=== PATIENT | female | born 1970 | race Caucasian/White ===

== ENCOUNTER 2016-04-14 11:23 | Emergency (ER) | payer OTHER ==
[~2016-04-14 11:23] MED LIST: ASCO500C5 PO; BACL10TA PO; BACL20TA PO; CALC-354 PO; CLON0.5T3 PO; FSMD/70 PO; GABA1CAP5 PO; HYDR-5688 PO; MISCCAP80 PO; MULT-513 PO; NATA1INJ IV; OXYB10TA13 PO; PRED20TA PO; SERT-234 PO
[2016-04-14 11:25] VITALS: TEMP 36.6; Ht 175.3 cm
[2016-04-14] MEDS ORDERED: SODIUM CHLORIDE 0.9% 1000ML 1,000 ML IV STA (12:20)
[2016-04-14] MEDS ORDERED: CLONAZEPAM 0.5 MG TAB PO STA (12:20)
[2016-04-14] MEDS ORDERED: CODEINE SULFATE 15 MG TAB PO STA ×2 (12:20→12:30)
[2016-04-14] MEDS ORDERED: CODEINE SULFATE 30 MG TAB PO STA (12:37)
[2016-04-14 12:44] LABS: BASO % 0.1 %; BASO ABS # 0.01 K/uL (0-0.2); COMPLETE YES; HEMATOCRIT 43.2 % (37-47); IG% 0.4 %; LYMPH % 10.1 %; MEAN CELL VOLUME 91.3 fL (80-100); MEAN CORPUSCULAR HEMOGLOBIN 30.7 pg (25-34); MEAN CORPUSCULAR HGB CONC 33.6 g/dl (32-36); MEAN PLATELET VOLUME 10.3 fL (7.4-10.4); MONO % 7.2 %; NEUT % 82.2 %; PLATELET COUNT 231 K/uL (130-400); RED BLOOD COUNT 4.73 M/uL (4.2-5.4)
[2016-04-14 13:01] LABS: ALT/SGPT 23 U/L (12-78); BLOOD UREA NITROGEN 18 mg/dl (7-18); BUN/CREATININE RATIO 19.8 (10-20); CALCIUM 9.5 mg/dl (8.5-10.1); CARBON DIOXIDE 27 mmol/L (21-32); CHLORIDE 105 mmol/L (98-107); CREATININE 0.92 mg/dl (0.60-1.20); GLUCOSE 101 mg/dl (70-99); POTASSIUM 3.8 mmol/L (3.5-5.1); SODIUM 141 mmol/L (136-145)
[2016-04-14 13:03] LABS: ALB/GLOB RATIO 0.9 (0.9-2); ALKALINE PHOSPHATASE 50 U/L (45-117); AST/SGOT 18 U/L (15-37)
--- NOTE | 2016-04-14 15:12 | EMERGENCY ROOM VISIT NOTE ---
ED Visit Note First contact with patient: 11:49 This Patient was discussed with the physician [employer], Kervin Elliott PA-C. The pertinent historical and physical exam findings were confirmed. I agree with the studies ordered and with the interpretations of these studies. I agree with the disposition and care plan.
[2016-04-14] MEDS ORDERED: CDN15 PO (16:20)
--- NOTE | 2016-04-14 16:21 | EMERGENCY ROOM VISIT NOTE ---
History First contact with patient: 11:49 Chief Complaint: PAIN (GENERALIZED) Stated Complaint: TRIGEMINAL NEURALGIA PAIN History of Present Illness The patient is a delightful 45 year old female who presents to the Emergency Room via private vehicle accompanied by with complaints of "trigeminal neuralgia pain". The patient states that she has had trigeminal neuralgia for the past few years. She notes that she saw Dr. Cazares/Keisha Marie yesterday and [facility]u-Medrol and IV fluids. Klonopin was also added to the baclofen, gabapentin and hydrocodone for pain. She states that the pain in the right side of the face will come in waves and when it hits the pain is a 15/10. She states that when she eats it triggers this therefore for about the past 9 days she has been unable to eat or drink because of that. She denies any fevers, chills, chest pain or shortness of breath. Review of Systems A complete 10-point Review of Systems was discussed with the patient, with pertinent positives and negatives listed in the History of Present Illness. All remaining Review of Systems questions can be considered negative unless otherwise specified. Past Medical/Surgical History Medical Problems: (1) MS (multiple sclerosis) (2) Trigeminal neuralgia Family History Cancer Social History Smoking Status: Never Smoker Social History: She is unemployed, feels safe at home and denies tobacco and alcohol products. Current/Historical Medications Scheduled Alendronate/Cholecalciferol (Fosamax+D 70MG/2800 Iu), 1 TABLET PO WK Ascorbic Acid (Vitamin C), 500 MG PO DAILY Baclofen (Lioresal), 30 MG PO QAM Baclofen (Lioresal), 20 MG PO BID Calcium Carbonate-Cholecalcife (Caltrate 600+D), 1 TAB PO BID Clonazepam (Klonopin), 0.25 MG PO BID Gabapentin (Neurontin), 400 MG PO BID Gabapentin (Neurontin), 800 MG PO HS Multivitamins/Minerals (Mvi With Minerals), 1 TAB PO DAILY Natalizumab (Tysabri), 300 MG IV Q4WK Oxybutynin Chloride Er (Ditropan Xl), 20 MG PO DAILY Prednisone (Prednisone), 0 PO DAILY Probiotic Product (Probiotic), 1 CAP PO DAILY Sertraline (Zoloft), 100 MG PO DAILY Scheduled PRN Acetaminophen/Codeine (Tylenol W/Codeine #3), 1 TAB PO Q4H PRN for Pain Hydrocodone/Acetaminophen 5MG/325MG ([place] 5MG/325MG), 1 TABLET PO Q4 PRN for Pain Oxycodone/Acetaminophen 5MG/325MG (Percocet 5MG/325MG), 1-2 TABLETS PO Q4H PRN for Pain Allergies Coded Allergies: Amantadine (Verified Allergy, Intermediate, SWELLING, 04/14/16) Azathioprine (Verified Allergy, Intermediate, INCREASED LFT'S/ABDOMINAL PAIN, 04/14/16) Physical Exam Vital Signs Date Time Temp Pulse Resp B/P Pulse Ox O2 Delivery O2 Flow Rate FiO2 04/14/16 17:15 71 18 88/56 96 04/14/16 15:20 77 16 94/58 96 Room Air 04/14/16 13:28 79 18 99/55 100 Room Air 04/14/16 11:25 36.6 86 20 101/61 98 Room Air Physical Exam VITAL SIGNS - Vital signs and nursing notes were reviewed. Patient is afebrile , normotensive, non-tachycardic and is saturating well on room air 98%. GENERAL -45-year-old female appearing her stated age who is in no acute distress. Communicates well with provider and answers questions appropriately. SKIN - Without rashes. There is no erythema or edema to the right side of the face. No evidence of cellulitis. No evidence of temporal arteritis. HEAD - NC/AT. EYES - Sclera anicteric. Palpebral conjunctiva pink and moist with no injection noted. EARS - No deformities of external structures noted on gross examination bilaterally. NOSE - Midline and without cyanosis. No epistaxis or purulent drainage noted. MOUTH/OROPHARYNX - Without perioral cyanosis. Lips appear dry. LUNGS - Chest wall symmetric without accessory muscle use, intercostals retractions, or central cyanosis. Normal vesicular breath sounds CTA B/L. No wheezes, rales, or rhonchi appreciated. CARDIAC - RRR with S1/S2. No murmur, rubs, or gallops appreciated. Medical Decision & Procedures Laboratory Results 04/14/16 12:17 Red Blood Count 4.73, Mean Corpuscular Volume 91.3, Mean Corpuscular Hemoglobin 30.7, Mean Corpuscular Hemoglobin Concent 33.6, Mean Platelet Volume 10.3, Neutrophils (%) (Auto) 82.2, Lymphocytes (%) (Auto) 10.1, Monocytes (%) (Auto) 7.2, Eosinophils (%) (Auto) 0.0, Basophils (%) (Auto) 0.1, Neutrophils # (Auto) 13.92, Lymphocytes # (Auto) 1.70, Monocytes # (Auto) 1.21, Eosinophils # (Auto) 0.00, Basophils # (Auto) 0.01 04/14/16 12:17 Test 04/14/16 12:17 White Blood Count 16.90 K/uL (4.8-10.8) Red Blood Count 4.73 M/uL (4.2-5.4) Hemoglobin 14.5 g/dL (12.0-16.0) Hematocrit 43.2 % (37-47) Mean Corpuscular Volume 91.3 fL (80-100) Mean Corpuscular Hemoglobin 30.7 pg (25-34) Mean Corpuscular Hemoglobin Concent 33.6 g/dl (32-36) Platelet Count 231 K/uL (130-400) Mean Platelet Volume 10.3 fL (7.4-10.4) Neutrophils (%) (Auto) 82.2 % Lymphocytes (%) (Auto) 10.1 % Monocytes (%) (Auto) 7.2 % Eosinophils (%) (Auto) 0.0 % Basophils (%) (Auto) 0.1 % Neutrophils # (Auto) 13.92 K/uL (1.4-6.5) Lymphocytes # (Auto) 1.70 K/uL (1.2-3.4) Monocytes # (Auto) 1.21 K/uL (0.11-0.59) Eosinophils # (Auto) 0.00 K/uL (0-0.5) Basophils # (Auto) 0.01 K/uL (0-0.2) RDW Standard Deviation 47.1 fL (36.4-46.3) RDW Coefficient of Variation 14.1 % (11.5-14.5) Immature Granulocyte % (Auto) 0.4 % Immature Granulocyte # (Auto) 0.06 K/uL (0.00-0.02) Erythrocyte Sedimentation Rate 2 mm/hr (0-21) Anion Gap 9.0 mmol/L (3-11) Estimated GFR () 86.5 Estimated GFR (Non- 74.7 BUN/Creatinine Ratio 19.8 (10-20) Calcium Level 9.5 mg/dl (8.5-10.1) Total Bilirubin 0.7 mg/dl (0.2-1) Aspartate Amino Transf (AST/SGOT) 18 U/L (15-37) Alanine Aminotransferase (ALT/SGPT) 23 U/L (12-78) Alkaline Phosphatase 50 U/L (45-117) C-Reactive Protein < 0.29 mg/dl (0-0.29) Total Protein 8.1 gm/dl (6.4-8.2) Albumin 3.8 gm/dl (3.4-5.0) Globulin 4.3 gm/dl (2.5-4.0) Albumin/Globulin Ratio 0.9 (0.9-2) Medications Administered Medications (Trade) Dose Ordered Sig/Julieta Route Start Time Stop Time Status Last Admin Dose Admin Clonazepam 0.25 mg 0.25 mg NOW STAT PO 04/14/16 12:20 04/14/16 12:21 DC 04/14/16 12:44 0.25 MG Sodium Chloride (Nss 1000ml) 1,000 ml @ 999 mls/hr Q1H1M STAT IV 04/14/16 12:20 04/14/16 13:20 DC 04/14/16 12:47 999 MLS/HR Codeine Sulfate (Codeine Tab) 15 mg ONE STAT PO 04/14/16 12:37 04/14/16 12:38 DC 04/14/16 13:02 15 MG Medical Decision Patient was seen and evaluated as above. After obtaining a thorough history and physical examination IV access was obtained and a CBC, CMP secondary to subjective and objective examination findings. I then elected to speak with her neurologist. At 12:15 PM I spoke with Keisha Marie PA-C. She instructed me to give the patient a liter of IV fluid, 10 mg of codeine, Klonopin 0.25 mg and to have the patient call her office to schedule follow-up/ to see if this medication regimen will work. I do believe this is reasonable. She was given 0.25 mg of Klonopin and 50 mg of codeine as we did not have 10 mg tablets. She was reassessed and noted to have 2 episodes of trigeminal neuralgia pain. She was then observed after the pain medication was administered and did not have any other episodes. She was offered inpatient admission versus a trial at home with pain medication. She decided she would like to go home. I do believe this is reasonable. After she was hydrated with a liter of normal saline CBC reveals leukocytosis of 16.9, random glucose of 101 , and globulin of 4.3. I believe the leukocytosis is likely secondary to the Solu-Medrol she received yesterday. She was afebrile and had no signs of infection. Case was discussed with my attending and it was decided to add an ESR and CRP to further evaluate for potential temporal arteritis. These were within normal limits. Patient was educated upon findings and instructed to have these repeated with her family doctor. As stated above, the patient did elect to go home and she was sent a prescription of codeine. I was called by the pharmacy and [place] who noted that they do not carry this medication. I then elected to provide the patient with Tylenol No. 3 which has 30 mg of codeine. She was told she may split these in half. This was not sure pharmacy. She was told to continue the Klonopin as prescribed. It is important to note that she had not started the Klonopin yet as she was just prescribed this. I did call Dr. Valdez's office again and spoke with the nurse Ms. Roslyn Olmedo, and informed her upon the patient's emergency department visit. She is to relay this information to Dr. Mcdermott soon as possible. In regard to the patient, She was instructed to return with any new/concerning symptoms or worsening of her pain. I do believe outpatient management is reasonable at this time. She was educated upon today's findings, educated upon management, had questions answered prior to discharge and was discharged home in good condition. In the evaluation and treatment of this patient the following differential diagnoses were entertained: Trigeminal neuralgia, temporal arteritis, migraine, among others. Impression Primary Impression: Trigeminal neuralgia of right side of face Departure Information Dispostion Home / Self-Care Condition GOOD Prescriptions Acetaminophen/Codeine (Tylenol W/Codeine #3) 300 Mg/30 Mg Tab 1 TAB PO Q4H Y for Pain, #18 TAB For Initial Treatment Prov: Kervin Elliott, CRISTINA 04/14/16 Referrals Adolfo Garcia M.D. (PCP) Keisha Osborne M.D. Patient Instructions My [facility] Additional Instructions You were seen in the emergency department for right-sided facial pain, trigeminal neuralgia. Your case was discussed with Dr. Rhodes's physician faculty i on call medical assistant. Lab work revealed a slightly elevated white count at 16.9 which I believe is likely secondary to the IV steroids you received yesterday. It was recommended we start you on codeine, and encourage you to continue the Klonopin as it is prescribed. It is illegal to operate machinery or drive while taking codeine. This item can make you constipated, please take a stool softener with this. You were to call the office in the next few days to update them on how the medication is working. Please return to the emergency department with any new/concerning symptoms.
[2016-04-14] MEDS ORDERED: ACET-749 PO (16:37)
[2016-04-14 17:15] VITALS: BP 88/56; PULSE 71; O2SAT 96
[2016-04-14] MEDS ORDERED: OXYC-57 PO (20:33)
[2016-04-24] MEDS ORDERED: CPR500 PO (12:09)
[2016-04-24] MEDS ORDERED: CYM60 PO (13:23)
[2016-05-17] MEDS ORDERED: AMOX500C3 PO (07:30)
== END 2016-04-14 17:15 | disposition home or self-care (01) ==
LOC: C.EDB 11:24
DX: G50.0 Trigeminal neuralgia (principal); G35 Multiple sclerosis; Z80.9 Family history of malignant neoplasm, unspecified

== ENCOUNTER 2016-04-14 19:40 | Emergency (ER) | payer OTHER ==
[~2016-04-14] VITALS: Ht 175.3 cm; Wt 56.0 kg
[~2016-04-14 19:40] MED LIST changes: +ACET-749 PO; +CDN15 PO
[2016-04-14 19:47] VITALS: TEMP 36.8; Ht 175.3 cm; Wt 56.0 kg
[2016-04-14] MEDS ORDERED: HYDROmorphone INJ 1 MG/ML SYR IV STA (20:31)
[2016-04-14] MEDS ORDERED: OXYC-57 PO (20:33)
--- NOTE | 2016-04-14 20:39 | EMERGENCY ROOM VISIT NOTE ---
ED Visit Note First contact with patient: 19:57 45-year-old with history of MS and trigeminal neuralgia reportedly diagnosed her her neurologist presents to the emergency room for worsening bursts of right -sided facial pain over the last 10 days unrelieved with the codeine prescribed earlier today and emergency room. She and are requesting more aggressive pain management. Dilaudid 1mg IM, Percocet home pack and prescription for Percocet No. 20 written. Case management requested to facilitate prompt follow-up with outpatient neurologist.
[2016-04-14] MEDS ORDERED: HYDROmorphone INJ 1 MG/ML SYR IM PRN (20:45)
[2016-04-14] MEDS ORDERED: PERCOCET HOME PACK PO ONE (20:45)
[2016-04-14 21:27] VITALS: BP 107/73; PULSE 87; O2SAT 97
[2016-04-24] MEDS ORDERED: CPR500 PO (12:09)
[2016-04-24] MEDS ORDERED: CYM60 PO (13:23)
[2016-05-17] MEDS ORDERED: AMOX500C3 PO (07:30)
== END 2016-04-14 21:28 | disposition home or self-care (01) ==
LOC: C.EDB 19:42 → C.EDC 21:28
DX: G50.0 Trigeminal neuralgia (principal); G35 Multiple sclerosis

== ENCOUNTER 2016-04-22 11:40 | Inpatient (IN) | payer OTHER ==
[~2016-04-22] VITALS: Ht 175.3 cm; Wt 59.6 kg
[~2016-04-22 11:40] MED LIST changes: -CDN15 PO; +OXYC-57 PO
[2016-04-22 11:43] VITALS: Ht 175.3 cm; Wt 59.6 kg
--- NOTE | 2016-04-22 12:20 | EMERGENCY ROOM VISIT NOTE ---
History Report prepared by Jennyfer: Misael Gross Under the Supervision of: Dr. Andrés Mahan M.D. First contact with patient: 12:13 Chief Complaint: OTHER COMPLAINT Stated Complaint: PAIN IN FACE- CAN'T EAT, BED SORES History of Present Illness The patient is a 45 year old female who presents to the Emergency Room with complaints of intermittent facial pain that started months ago. She has chronic trigeminal neuralgia, and was sent over here for an MRI by Keisha Jasmine. The patient does not have any pain today, however. She also has bed sores. The patient took 1 OxyContin this morning. There is concern for dehydration. Source of History: patient Onset: Months ago Position: other (face) Quality: other (pain) Timing: intermittent Note: Associated symptoms: Bed sores. Denies any current pain. Review of Systems See HPI for pertinent positives & negatives. A total of 10 systems reviewed and were otherwise negative. Past Medical & Surgical Medical Problems: (1) MS (multiple sclerosis) (2) Trigeminal neuralgia Surgical Problems: (1) History of tubal ligation Family History Cancer Lung disease Seizures Social History Smoking Status: Never Smoker Alcohol Use: none Marital Status: Housing Status: lives with family Occupation Status: unemployed Current/Historical Medications Scheduled Alendronate/Cholecalciferol (Fosamax+D 70MG/2800 Iu), 1 TABLET PO WK Ascorbic Acid (Vitamin C), 500 MG PO DAILY Baclofen (Lioresal), 30 MG PO DAILY Baclofen (Lioresal), 20 MG PO BID Calcium Carbonate-Cholecalcife (Caltrate 600+D), 1 TAB PO BID Clonazepam (Klonopin), 0.5 MG PO BID Gabapentin (Neurontin), 800 MG PO TID Multivitamins/Minerals (Mvi With Minerals), 1 TAB PO DAILY Natalizumab (Tysabri), 300 MG IV Q4WK Oxybutynin Chloride Er (Ditropan Xl), 10 MG PO BID Prednisone (Prednisone), 0 PO DAILY Probiotic Product (Probiotic), 1 CAP PO Q2D Sertraline (Zoloft), 100 MG PO DAILY Scheduled PRN Oxycodone/Acetaminophen 10MG/325MG (Oxycodone/Acetaminophen 10MG/325MG), 1 TAB PO Q4H PRN for Pain Allergies Coded Allergies: Amantadine (Verified Allergy, Intermediate, SWELLING, 04/22/16) Carbamazepine (Verified Allergy, Unknown, RASH, 04/22/16) rash Levetiracetam (Verified Allergy, Unknown, rash, 04/22/16) Azathioprine (Unverified Adverse Reaction, Intermediate, INCREASED LFT'S/ ABDOMINAL PAIN, 04/22/16) Physical Exam Vital Signs Date Time Temp Pulse Resp B/P Pulse Ox O2 Delivery O2 Flow Rate FiO2 04/22/16 17:00 66 20 91/58 96 Room Air 04/22/16 16:40 Room Air 04/22/16 15:15 71 16 89/53 04/22/16 13:16 64 04/22/16 11:43 36.5 83 16 101/70 99 Room Air Physical Exam GENERAL: Patient is a cachetic in appearance. HEAD: Normocephalic atraumatic EYES: Ocular movements intact pupils equal and react to light OROPHARYNX mucous membranes are moist no exudates present no erythema or edema present NECK: Supple no nuchal rigidity CHEST: Good equal expansion LUNGS: Clear and equal to auscultation CARDIAC: Normal S1 and S2 ABDOMEN: Soft nontender no guarding BACK: No CVA tenderness EXTREMITIES: No pain upon palpation normal muscle strength in all groups no clubbing cyanosis or edema NEURO: Patient is following commands is answering questions appropriately. Alert and oriented x3 Cranial Nerves 2-12 grossly intact Medical Decision & Procedures Laboratory Results Test 04/22/16 13:05 Immature Granulocyte % (Auto) 0.7 % White Blood Count 16.59 K/uL (4.8-10.8) Red Blood Count 4.92 M/uL (4.2-5.4) Hemoglobin 15.2 g/dL (12.0-16.0) Hematocrit 45.7 % (37-47) Mean Corpuscular Volume 92.9 fL (80-100) Mean Corpuscular Hemoglobin 30.9 pg (25-34) Mean Corpuscular Hemoglobin Concent 33.3 g/dl (32-36) Platelet Count 169 K/uL (130-400) Mean Platelet Volume 10.2 fL (7.4-10.4) Neutrophils (%) (Auto) 83.7 % Lymphocytes (%) (Auto) 9.5 % Monocytes (%) (Auto) 5.1 % Eosinophils (%) (Auto) 0.9 % Basophils (%) (Auto) 0.1 % Neutrophils # (Auto) 13.89 K/uL (1.4-6.5) Lymphocytes # (Auto) 1.57 K/uL (1.2-3.4) Monocytes # (Auto) 0.85 K/uL (0.11-0.59) Eosinophils # (Auto) 0.15 K/uL (0-0.5) Basophils # (Auto) 0.02 K/uL (0-0.2) Immature Granulocyte # (Auto) 0.11 K/uL (0.00-0.02) Prothrombin Time 11.5 SECONDS (9.0-12.0) Prothromb Time International Ratio 1.1 (0.9-1.1) Activated Partial Thromboplast Time 25.8 SECONDS (21.0-31.0) Partial Thromboplastin Ratio 1.0 Total Bilirubin 0.8 mg/dl (0.2-1) Direct Bilirubin 0.3 mg/dl (0-0.2) Aspartate Amino Transf (AST/SGOT) 31 U/L (15-37) Alanine Aminotransferase (ALT/SGPT) 53 U/L (12-78) Alkaline Phosphatase 56 U/L (45-117) C-Reactive Protein 0.68 mg/dl (0-0.29) Total Protein 8.0 gm/dl (6.4-8.2) Albumin 3.7 gm/dl (3.4-5.0) Prealbumin 28.4 mg/dl (20-40) Lipase 303 U/L (73-393) Procalcitonin < 0.05 ng/mL (0-0.5) Labs reviewed by ED physician. ED Course 1214: Past medical records reviewed. The patient was evaluated in room A10. A complete history and physical examination was performed. Medical Decision Differential diagnosis: Etiologies such as metabolic, infection, hypo/hyperglycemia, electrolyte abnormalities, cardiac sources, intracerebral event, toxicologic, neurologic, as well as others were entertained. This is a 45-year-old female who presents emergency department sent in by neurology. There is concerned that the patient has lost a significant amount of weight and that she has not eating due to her trigeminal neuralgia. Neurology asked for a specific MRI to be performed. This was done. The patient was signed out to Dr. Hogan at change shift. Impression Primary Impression: Trigeminal neuralgia Scribe Attestation The scribe's documentation has been prepared under my direction and personally reviewed by me in its entirety. I confirm that the note above accurately reflects all work, treatment, procedures, and medical decision making performed by me. Departure Information Dispostion Still a Patient Referrals Adolfo Garcia M.D. (PCP) Patient Instructions My [facility]
[2016-04-22 13:18] LABS: BASO % 0.1 %; BASO ABS # 0.02 K/uL (0-0.2); COMPLETE YES; EOS % 0.9 %; HEMATOCRIT 45.7 % (37-47); IG% 0.7 %; LYMPH % 9.5 %; LYMPH ABS # 1.57 K/uL (1.2-3.4); MEAN CELL VOLUME 92.9 fL (80-100); MEAN CORPUSCULAR HEMOGLOBIN 30.9 pg (25-34); MEAN CORPUSCULAR HGB CONC 33.3 g/dl (32-36); MEAN PLATELET VOLUME 10.2 fL (7.4-10.4); MONO % 5.1 %; NEUT % 83.7 %; PLATELET COUNT 169 K/uL (130-400); RED BLOOD COUNT 4.92 M/uL (4.2-5.4); WHITE BLOOD COUNT 16.59 K/uL (4.8-10.8)
[2016-04-22 13:35] LABS: ALT/SGPT 53 U/L (12-78); BLOOD UREA NITROGEN 17 mg/dl (7-18); BUN/CREATININE RATIO 27.2 (10-20); CALCIUM 9.5 mg/dl (8.5-10.1); CARBON DIOXIDE 30 mmol/L (21-32); CHLORIDE 104 mmol/L (98-107); CREATININE 0.61 mg/dl (0.60-1.20); GLUCOSE 104 mg/dl (70-99); POTASSIUM 4.3 mmol/L (3.5-5.1); SODIUM 143 mmol/L (136-145)
[2016-04-22 13:39] LABS: ALKALINE PHOSPHATASE 56 U/L (45-117); AST/SGOT 31 U/L (15-37)
--- NOTE | 2016-04-22 15:03 | EMERGENCY ROOM VISIT NOTE ---
ED Visit Note First contact with patient: 14:[address] Mahan at change of shift 3:00pm. Sent by Neurologist for MRI and admission for analgesic control and concerns over malnutrition. WBCs noted. [facility] @ 4:10 pending some labs and CXR. MRI c/w MS.
--- NOTE | 2016-04-22 15:25 | DIAGNOSTIC IMAGING REPORT ---
BRAIN COMBO FOR IAC CLINICAL HISTORY: Severe right facial pain. Multiple sclerosis. COMPARISON STUDY: No previous studies for comparison. TECHNIQUE: Utilizing a 1.5 Aubree magnet, multiplanar, multiecho imaging of the brain was performed pre and postcontrast administration. Injection of 5.8 cc of gadolinium IV was uneventful. Thin cut imaging through the internal auditory canals was also performed. FINDINGS: There are no areas of restricted diffusion. Multiple areas of T2 shine through are present. Moderate atrophy for age is noted. No intracranial masses or pathologic enhancement is present. Flow-voids for the major intracranial vessels are present. Extensive periventricular and subcortical white matter T2 hyperintense foci are noted. There is no enhancement to suggest active demyelination on this examination. Several signal is maintained. Orbits and sinuses are unremarkable. There is no mass or abnormal enhancement within the internal auditory canals. IMPRESSION: 1. No acute intracranial findings. 2. Extensive white matter T2 hyperintense foci, predominantly within a periventricular distribution consistent with the known history of multiple sclerosis. No evidence for active demyelination. 3. No intracranial masses or pathologic enhancement. 4. No abnormalities within the internal auditory canals. Electronically signed by: Harvey Keller M.D. 04/22/2016 3:23 PM Dictated Date/Time: 04/22/2016 3:14 PM
[2016-04-22 15:34] LABS: C-REACTIVE PROTEIN 0.68 mg/dl (0-0.29); PREALBUMIN 28.4 mg/dl (20-40)
[2016-04-22] MEDS ORDERED: SODIUM CHLORIDE 0.9% 1000ML 1,000 ML IV SCH (17:15)
[2016-04-22] MEDS ORDERED: ONDANSETRON INJ 2 MG/ML 2 ML VIAL IV PRN (17:15)
[2016-04-22] MEDS ORDERED: ACETAMINOPHEN 325 MG TAB PO PRN (17:15)
[2016-04-22] MEDS ORDERED: OXYC-88 PO (17:19)
[2016-04-22] MEDS ORDERED: BACL20TA PO (17:19)
[2016-04-22] MEDS ORDERED: MoRPHine SULFATE 4 MG/ML 1 ML CARP\\VIAL IV PRN (17:45)
--- NOTE | 2016-04-22 17:59 | History and Physical ---
History & Physical Date & Time of Service: Apr 22, 2016 at 17:38 Chief Complaint: Right Cheek Pain Primary Care Physician: Adolfo Garcia M.D. History of Present Illness 45 year old female who presents to the ER with intractable right cheek pain. Patient has history of MS and trigeminal neuralgia. She has been dealing with increased pain from trigeminal neuralgia for the past one month. She was initially treated with Toradol and Prednisone. She then saw neuro who gave her 1 gram IV solu-medrol, IVF, and Klonopin. She continued to have pain so her Percocet and Klonopin were increased. Neuro wanted patient to get an MRI to see if there was any possible intervention for neurosurgery to do; however, due to the increased pain, patient has been unable to go for the MRI. She reports a very poor appetite because chewing can sometimes trigger the pain. Patient reports the pain is located over her maxillary bone and will sometimes radiate into her upper jaw. She reports she gets a sensation of a feather brushing over her nose and then the pain hits. She denies chest pain and shortness of breath. No lightheadedness, dizziness, diaphoresis, or syncope. She denies abdominal pain, nausea, vomiting, or diarrhea. Patient's caths her 2-3 times a day and reports her urine output has been down. Patient had a brain MRI in the ED that does not show any acute findings. Past Medical/Surgical History Medical Problems: (1) MS (multiple sclerosis) Status: Chronic (2) Trigeminal neuralgia Status: Chronic Surgical Problems: (1) History of tubal ligation Status: Chronic Family History FH: brain cancer FATHER Social History Smoking Status: Never Smoker Drug Use: none Marital Status: Immunizations History of Influenza Vaccine: Yes Influenza Vaccine Date: Feb 11, 2016 History of Tetanus Vaccine?: Yes Tetanus Immunization Date: Sep 22, 2006 History of Pneumococcal: Yes Pneumococcal Date: Sep 22, 2006 Multi-Drug Resistant Organisms History of MDRO: No Allergies Coded Allergies: Amantadine (Verified Allergy, Intermediate, SWELLING, 04/22/16) Azathioprine (Unverified Adverse Reaction, Intermediate, INCREASED LFT'S/ ABDOMINAL PAIN, 04/22/16) Home Medications Scheduled Alendronate/Cholecalciferol (Fosamax+D 70MG/2800 Iu), 1 TABLET PO WK Ascorbic Acid (Vitamin C), 500 MG PO DAILY Baclofen (Lioresal), 30 MG PO DAILY Baclofen (Lioresal), 20 MG PO BID Calcium Carbonate-Cholecalcife (Caltrate 600+D), 1 TAB PO BID Clonazepam (Klonopin), 0.5 MG PO BID Gabapentin (Neurontin), 800 MG PO TID Multivitamins/Minerals (Mvi With Minerals), 1 TAB PO DAILY Natalizumab (Tysabri), 300 MG IV Q4WK Oxybutynin Chloride Er (Ditropan Xl), 10 MG PO BID Prednisone (Prednisone), 0 PO DAILY Probiotic Product (Probiotic), 1 CAP PO Q2D Sertraline (Zoloft), 100 MG PO DAILY Scheduled PRN Oxycodone/Acetaminophen 10MG/325MG (Oxycodone/Acetaminophen 10MG/325MG), 1 TAB PO Q4H PRN for Pain Review of Systems 10 point review of systems was completed with the pertinent positives and negatives noted per the HPI Physical Exam Vital Signs Date Time Temp Pulse Resp B/P Pulse Ox O2 Delivery O2 Flow Rate FiO2 04/22/16 16:40 Room Air 04/22/16 15:15 71 16 89/53 04/22/16 13:16 64 04/22/16 11:43 36.5 83 16 101/70 99 Room Air General Appearance: + pertinent finding (appears weak and tired) Head: normocephalic Eyes: normal inspection ENT: + pertinent finding (dry lips and mucous membranes) Neck: supple, no JVD Respiratory/Chest: lungs clear, normal breath sounds, no respiratory distress Cardiovascular: regular rate, rhythm, no edema, normal peripheral pulses Abdomen/GI: normal bowel sounds, non tender, soft Extremities/Musculoskelatal: normal inspection, no calf tenderness Neurologic/Psych: no motor/sensory deficits (has BLLE weakness from MS - no acute changes), alert, normal mood/affect, oriented x 3 Skin: normal color, warm/dry, + pertinent finding (please refer to wound care note regarding deep tissue injury over left buttocks and sacral area) Diagnostics Laboratory Results Results Past 24 Hours Test 04/22/16 13:05 Range/Units White Blood Count 16.59 4.8-10.8 K/uL Red Blood Count 4.92 4.2-5.4 M/uL Hemoglobin 15.2 12.0-16.0 g/dL Hematocrit 45.7 37-47 % Mean Corpuscular Volume 92.9 80-100 fL Mean Corpuscular Hemoglobin 30.9 25-34 pg Mean Corpuscular Hemoglobin Concent 33.3 32-36 g/dl Platelet Count 169 130-400 K/uL Mean Platelet Volume 10.2 7.4-10.4 fL Neutrophils (%) (Auto) 83.7 % Lymphocytes (%) (Auto) 9.5 % Monocytes (%) (Auto) 5.1 % Eosinophils (%) (Auto) 0.9 % Basophils (%) (Auto) 0.1 % Neutrophils # (Auto) 13.89 1.4-6.5 K/uL Lymphocytes # (Auto) 1.57 1.2-3.4 K/uL Monocytes # (Auto) 0.85 0.11-0.59 K/uL Eosinophils # (Auto) 0.15 0-0.5 K/uL Basophils # (Auto) 0.02 0-0.2 K/uL RDW Standard Deviation 49.4 36.4-46.3 fL RDW Coefficient of Variation 14.6 11.5-14.5 % Immature Granulocyte % (Auto) 0.7 % Immature Granulocyte # (Auto) 0.11 0.00-0.02 K/uL Sodium Level 143 136-145 mmol/L Potassium Level 4.3 3.5-5.1 mmol/L Chloride Level 104 98-107 mmol/L Carbon Dioxide Level 30 21-32 mmol/L Anion Gap 9.0 3-11 mmol/L Blood Urea Nitrogen 17 7-18 mg/dl Creatinine 0.61 0.60-1.20 mg/dl Estimated GFR () 126.0 Estimated GFR (Non- 108.7 BUN/Creatinine Ratio 27.2 10-20 Random Glucose 104 70-99 mg/dl Calcium Level 9.5 8.5-10.1 mg/dl Total Bilirubin 0.8 0.2-1 mg/dl Direct Bilirubin 0.3 0-0.2 mg/dl Aspartate Amino Transf (AST/SGOT) 31 15-37 U/L Alanine Aminotransferase (ALT/SGPT) 53 12-78 U/L Alkaline Phosphatase 56 45-117 U/L C-Reactive Protein 0.68 0-0.29 mg/dl Total Protein 8.0 6.4-8.2 gm/dl Albumin 3.7 3.4-5.0 gm/dl Prealbumin 28.4 20-40 mg/dl Lipase 303 73-393 U/L Procalcitonin < 0.05 0-0.5 ng/mL Diagnostic Radiology BRAIN MRI IMPRESSION: 1. No acute intracranial findings. 2. Extensive white matter T2 hyperintense foci, predominantly within a periventricular distribution consistent with the known history of multiple sclerosis. No evidence for active demyelination. 3. No intracranial masses or pathologic enhancement. 4. No abnormalities within the internal auditory canals. Impression Assessment and Plan INTRACTABLE PAIN DUE TO TRIGEMINAL NEURALGIA - admit to med/surg - case discussed with neurology - continue steroid taper and start to taper Klonopin, continue gabapentin - pain management consult - may need neurosurg evaluation; per Dr. Osborne - MRI images have been sent to neurosurgeon at [facility] LEUKOCYTOSIS - likely due to recent steroids - check urine DEHYDRATION - renal function OK - clinically dehydrated - dry mucous membranes and lips, weak - IVF MS - on Tysabri injections q4 weeks NEUROGENIC BLADDER - usually straight caths but will place Diaz whole hospitalized PRESSURE ULCER/DTI - present on admission - wound care consult DVT PROPHYLAXIS - SQ Lovenox DISPO - In my clinical judgment this beneficiary meets acute admission criteria, established by [facility], that includes being hospitalized through two midnights. agree with above h and p.45F with hx of MS and bed bound having right sided trigeminal neuralgia for about a month. Following with neurology. Various medicines were tried like steroids, Klonopin, tramadol and Neurontin but not helping. Not eating as chewing causing more pain. Neurology planned for MRI for any possible neurosurgery intervention but coldnot done as out patient. MRI done today in ER no acute finding.Afebrile Denies chest pain or sob. Admitting for hydration and pain control. p/e Ge not in distress cvs s1 and s2 heard no murmurs Oral mucosa dry Rs cta b/l no added sounds Abd benign Spot Cleaner non focal ext no edema a/p Trigeminal neuralgia to continue steroid taper to taper Klonopin on gabapentin pain management consult neurology consult Nutrition not eating as chewing causing more pain nutrition consult iv fluids hopefully pain gets better. Advanced Directives Existing Living Will: Yes Existing Power of [place] Representative: Yes VTE Prophylaxis VTE Risk Assessment Done? Y/N: Yes Risk Level: Moderate
--- NOTE | 2016-04-22 18:42 | DIAGNOSTIC IMAGING REPORT ---
CHEST 2 VIEWS ROUTINE CLINICAL HISTORY: leukocytosis dyspnea COMPARISON STUDY: No previous studies for comparison. FINDINGS: Poorly defined left lower lobe infiltrate. Lungs otherwise are clear. No evidence for cardiac enlargement. IMPRESSION: Left lower lobe infiltrate Electronically signed by: Fito Greer M.D. 04/22/2016 6:41 PM Dictated Date/Time: 04/22/2016 6:40 PM
[2016-04-22 19:25] LABS: MANUAL MICROSCOPIC REQUIRED? NO; REVIEW REQ? NO; URINE APPEARANCE TURBID (CLEAR); URINE BILIRUBIN NEG (NEG); URINE COLOR DK YELLOW; URINE EPITHELIAL CELL AUTO >30 /lpf (0-5); URINE NITRITE POS (NEG); URINE PH 8.5 (4.5-7.5); URINE SPECIFIC GRAVITY 1.021 (1.000-1.030); UROBILINOGEN POS (NEG); ZZUR CULT IF INDIC CLEAN CATCH YES
[2016-04-22 19:42] VITALS: O2SAT 97
[2016-04-22 20:58] VITALS: BP 100/63; PULSE 64; TEMP 36.8; O2SAT 98
[2016-04-22 21:08] LABS: INR 1.1 (0.9-1.1); PROTHROMBIN TIME (PATIENT) 11.5 SECONDS (9.0-12.0)
[2016-04-22 21:25] LABS: URINE APPEARANCE CLOUDY (CLEAR); URINE BILIRUBIN NEG (NEG); URINE COLOR DK YELLOW; URINE EPITHELIAL CELL AUTO >30 /lpf (0-5); URINE NITRITE NEG (NEG); URINE SPECIFIC GRAVITY 1.022 (1.000-1.030); UROBILINOGEN POS (NEG)
[2016-04-22 21:26] LABS: MANUAL MICROSCOPIC REQUIRED? NO; REVIEW REQ? YES
[2016-04-22] MEDS: D5W AND NSS 1,000 ML IV SCH (21:49)
[2016-04-22] MEDS: OXYBUTYNIN CHLORIDE 5 MG TABCR PO SCH (21:50)
[2016-04-22] MEDS: GABAPENTIN 400 MG CAP PO SCH (21:51)
[2016-04-22] MEDS: BACLOFEN TAB 20 MG TAB PO SCH (21:51)
[2016-04-22] MEDS: ENOXAPARIN 30 MG/0.3 ML SYR SQ SCH (22:38)
[2016-04-22 23:28] VITALS: BP 95/61; PULSE 73; TEMP 36.8; O2SAT 100
[2016-04-23] MEDS: D5W AND NSS 1,000 ML IV SCH ×2 (05:37→14:10)
--- NOTE | 2016-04-23 07:09 | NEUROLOGY CONSULTATION ---
DATE OF CONSULTATION: 04/22/2016 REASON FOR CONSULTATION: Continued followup with multiple sclerosis and trigeminal neuralgia. HISTORY OF PRESENT ILLNESS: Jagruti is a 45-year-old right-handed female, who has had multiple sclerosis since her early 20s. 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 On this background for several years intermittently and very infrequently she has had severe right V2 and V3 trigeminal pain. She was initially on Tegretol which she developed rash. She is on gabapentin for a multitude of reasons one of which was history of isolated seizure, two tremor, three neuropathic pain and spasticity. This has been gradually escalated in dose without any current significant effect. She is also on baclofen for spasticity, this dose has been adjusted and has not been effective. We recently increased the gabapentin and added clonazepam without significant effect, but with sedation. She has been taking a fairly high dose of Percocet 10 for at least the last 4 or 5 days. Fortunately, today she has not had any further pain, yesterday she had. She has lost an unknown amount of weight as she is fearful of eating and she has clinically appeared dehydrated. She has also developed a pressure sore on her buttocks. We had ordered an MRI of the brain with and without contrast with imaging to rule out a vascular loop which could be causing her trigeminal neuralgia in addition to her multiple sclerosis. The study today did not reveal any evidence of vascular loop. DAPHNEY Bonds had been in contact with Dr. Ferguson at [place] and indirectly in contact with Dr. Andrés Browne at [facility] regarding potentially her having surgery. The [facility] neurosurgeons felt the procedures done at_ their facility would not be helpful in multiple sclerosis and that done by Dr. Browne might be appropriate. So, therefore, the patient was admitted for hydration, nutrition and pain control. MEDICAL HISTORY: Notable for the above. PAST SURGICAL HISTORY: Breast enlargement, tubal ligation. SOCIAL HISTORY: Nonsmoker, nondrinker. My understanding is that the patient is adopted. ALLERGIES: AMANTADINE, AZATHIOPRINE, TEGRETOL AND KEPPRA. MEDICATIONS: At home she takes; Fosamax, vitamin C, baclofen dose 30 mg once a day and 20 mg b.i.d., calcium, clonazepam 0.5 b.i.d., gabapentin 800 t.i.d., multiple vitamins, Tysabri every 4 weeks, Ditropan 10 mg b.i.d. The patient received 1 dose of intravenous steroids and is currently on a steroid taper that has not been helpful for her facial pain. She is on a probiotic and Zoloft. She is taking oxycodone 10 mg as needed. LABORATORY DATA: Her white count was 16 consistent with steroid use. PT, PTT are pending. Chemistry profile; BUN and creatinine 17/0.61, sodium 143, potassium 4.3 random glucose 104. Transaminases normal, CRP 0.68, lipase 303. Urinalysis; trace ketones, positive nitrites, urobilinogen, trace leukocyte esterase, white cells 1-5, epithelial greater than 30, urine bacteria 4+. PHYSICAL EXAMINATION: VITAL SIGNS: 62, afebrile, 83, 16, 101/70, 99%. GENERAL: The patient is awake and alert. She avoids speaking because of precipitation of pain. She is clinically dehydrated. HEENT: Her tongue is dry, her lips are dry. Her eyes are mildly sunken and she appears thinner than baseline. HEART: There are no carotid bruits. No heart murmurs. ABDOMEN: Soft. EXTREMITIES: No calf swelling is noted. NEUROLOGIC: There is normal extraocular motility, facial sensation and symmetry, although she guards her face; uppers are about 4, lower right is about 2+. The TA is probably antigravity, left is 2-. There is mildly increased tone, diffusely brisk reflexes, cerebellar function where testable in the upper is mildly dystaxic. IMPRESSION: Severe trigeminal neuralgia refractory to baclofen and gabapentin. I believe she was previously taking Zanaflex and not tolerated it. She is allergic to Tegretol and Keppra. I have been concerned about using Lamictal given her rash to Tegretol, the potential cross reaction and she has not responded to clonazepam. I would recommend tapering and discontinuing the clonazepam. Continue Percocet on an as needed basis. Consult pain management, although I am not certain that they would have anything to add. Keisha Marie sent a note to Dr. Andrés Browne and Dr. Willingham regarding her case, they will contact her and Keisha will let Dr. Rodríguez know the status. I will recommend hydration and nutrition as well as wound care for her decubiti. Dr. Rodríguez will follow with you. SOPHY
[2016-04-23 07:12] VITALS: BP 91/49; PULSE 56; TEMP 36.6; O2SAT 99
[2016-04-23 07:16] LABS: HEMATOCRIT 40.3 % (37-47); MEAN CELL VOLUME 91.8 fL (80-100); MEAN CORPUSCULAR HEMOGLOBIN 30.8 pg (25-34); MEAN CORPUSCULAR HGB CONC 33.5 g/dl (32-36); PLATELET COUNT 159 K/uL (130-400); RED BLOOD COUNT 4.39 M/uL (4.2-5.4); WHITE BLOOD COUNT 11.14 K/uL (4.8-10.8)
[2016-04-23 08:00] LABS: BLOOD UREA NITROGEN 16 mg/dl (7-18); BUN/CREATININE RATIO 40.8 (10-20); CALCIUM 8.3 mg/dl (8.5-10.1); CARBON DIOXIDE 26 mmol/L (21-32); CHLORIDE 108 mmol/L (98-107); CREATININE 0.38 mg/dl (0.60-1.20); GLUCOSE 91 mg/dl (70-99); POTASSIUM 3.3 mmol/L (3.5-5.1); SODIUM 143 mmol/L (136-145)
[2016-04-23] MEDS ORDERED: SERTRALINE HCL 100 MG TAB PO SCH (08:00)
[2016-04-23] MEDS: BACLOFEN TAB 20 MG TAB PO SCH ×3 (08:22→20:32)
[2016-04-23] MEDS: ASCORBIC ACID 500 MG TAB PO SCH (08:23)
[2016-04-23] MEDS: OXYBUTYNIN CHLORIDE 5 MG TABCR PO SCH ×2 (08:23→20:32)
[2016-04-23] MEDS: CEROVITE ADV FORMULA TAB PO SCH (08:24)
[2016-04-23] MEDS: ENOXAPARIN 30 MG/0.3 ML SYR SQ SCH ×2 (08:24→20:31)
[2016-04-23] MEDS: CALCIUM 600MG + VIT D 400 IU TAB PO SCH ×2 (08:26→17:28)
[2016-04-23] MEDS: GABAPENTIN 400 MG CAP PO SCH ×3 (08:27→20:32)
[2016-04-23] MEDS: CLONAZEPAM 0.5 MG TAB PO SCH ×2 (08:32→20:32)
[2016-04-23] MEDS ORDERED: LACTOBACILLUS ACIDOPHILUS (FLORANEX) TAB PO SCH (09:00)
--- NOTE | 2016-04-23 12:58 | CONSULTATION REPORT ---
DATE OF CONSULTATION: 04/23/2016 INPATIENT NEW CONSULT CHIEF COMPLAINT: Right trigeminal neuralgia, cranial nerve V2. HISTORY OF PRESENT ILLNESS: I saw 45-year-old, Ms. Jagruti Melo today at the [facility]. She has a history of multiple sclerosis and right-sided V2 trigeminal neuralgia, increasing over the last month. She states that her pain is lancinating up to 5 times daily for about 1-2 seconds at a time, but reports that during these times, pain is so extreme that she cries and refuses to eat and drink as she feels that this exacerbates her pain. She was admitted for IV steroids, IV fluids and Klonopin. She reports she is unable to eat at all and there is an unopened breakfast tray on her table this morning. She states that the pain feels like a feather brushing over her nose and then the pain is excruciating over her cranial nerve, right V2. She denies any pain over cranial nerve V1 or V3. She states that sometimes, she will have pain radiating into her proximal mandible, but feels that it is starburst type pattern from over her maxilla. In regards to her multiple sclerosis, she currently utilizes Baclofen for her rigidity and spasticity, total daily mg dosage of 70 mg. She reports that she has fair efficacy of this. She denies any other concerns or constitutional complaints at this time with the exception of a coccyx region wound, which is being treated by wound Clinic. PAST MEDICAL HISTORY: Significant for multiple sclerosis and trigeminal neuralgia. PAST SURGICAL HISTORY: Significant for tubal ligation. SOCIAL HISTORY: She is , living with her significant other. Denies alcohol, tobacco or illicit substance use. MEDICATIONS AND ALLERGIES: Reviewed as per EMR. REVIEW OF SYSTEMS: A 10-point review of systems is negative aside from HPI. IMAGING STUDIES: Brain MRI dated 04/22/2016 shows no acute findings, extensive T2 foci within the periventricular distribution consistent with multiple sclerosis, but no evidence for active demyelination. No masses and no abnormalities in the internal auditory canals. PHYSICAL EXAMINATION: VITAL SIGNS: Height is 175.26 cm and weight is about 55 kilograms. Blood pressure is WNL pulse 56, respirations 16, temperature 36.6 degrees Centigrade, and 99% pulse oximetry on room air. GENERAL: She appears her stated age of [age] years old, is awake, alert and oriented x3, appearing in no acute distress with appropriate speech and thought processes and clear sensorium. She is cooperative and informative on today's examination. HEENT: Pupils are equal, round and reactive to light. NECK: Supple. She is exquisitely tender over her right cranial nerve V2 distribution with noticeable allodynia and hyperpathia. She is nontender over cranial nerves V1 or V3. She has no appreciable TMJ on examination. EXTREMITIES: Lower extremity was not tested; however, upper extremities have 5/5 strength with intact sensation. Gait was not observed. ASSESSMENT: 1. Multiple sclerosis. 2. Right-sided cranial nerve V2 trigeminal neuralgia with intractable pain. 3. Depression. TREATMENT: 1. I recommend conversion of her Zoloft to Cymbalta 60 mg p.o. daily. Orders were written. The patient was spoken to about the risks and benefits of the change as well as possible side effects and expectations of treatment. 2. The patient reports that Dr. Andrés Browne from [facility] will send her images and they are waiting back to hear from him in regards to possible surgical intervention. If this is possible, I feel that this is her best course of therapy at this time. 3. Could consider the right cranial nerve V2 injection. However, given her open wound and impending surgical consultation, would hold for now as a plan B. This is an option with radiofrequency ablation; however, this typically only provides relief for 6-9 months and surgical intervention would likely provide a better chance of a more permanent result. 4. Could consider conversion to Lyrica in the future; however, would plan to hold gabapentin at current dosing for now. MTDD
[2016-04-23] MEDS ORDERED: POTASSIUM CHLORIDE 10 MEQ TABCR PO STA (14:23)
[2016-04-23] MEDS ORDERED: CIPROFLOXACIN 500 MG TAB PO ONE (14:30)
--- NOTE | 2016-04-23 14:54 | PROGRESS NOTE ---
DATE: 05/03/2016 DATE: 04/23/2016. I saw Jagruti today with her . Refer you to Dr. Osborne's note. Discussed her case with Keisha Marie and Dr. Osborne had am pleased to report that at present she is pain free and has been pain free for last 3 days. She is getting IV fluids. I can touch the right side of her face without triggering anything and she is eating a little bit so perhaps the current pain is going to finally be controllable but only time will tell. She has been seen by pain management and they appropriately mentioned the option of a baclofen pump at sometime in the future to treat her spasticity, but this is clearly something we are not going to do right now. Neurosurgery group in [place] has apparently received her MRI at least, it was sent, but I do not think we are going to hear much back until Tuesday and Keisha Marie in our office will be handling the recalls but I think over the weekend I would be very surprised if we hear anything back. For now, I would not change her medications. She looks well. She is smiling. She is able to speak. I can touch her face and everyone is still a little bit on edge about this, but as time goes on perhaps the pain will continue to respond. She will be able to eat, and we may be able to get her home and handle this on an outpatient basis. I would not change her medications at this time. Her clonazepam is being tapered off. Will continue the combination of the Neurontin and the baclofen for now and hope that this phase will gradually spontaneously chacorta. I am not optimistic that neurosurgery is going to offer anything as I agree the treatment of trigeminal pain in patients with MS with surgical procedures often ineffective at least in terms of generally performed operations. I will check back with her tomorrow.
[2016-04-23 15:01] VITALS: BP 90/57; PULSE 63; TEMP 36.8; O2SAT 99
--- NOTE | 2016-04-23 15:51 | WOUND PROGRESS NOTE ---
DATE: 04/23/2016 DATE: 04/23/2016. CHIEF COMPLAINT: Ulceration on buttocks region. HISTORY OF PRESENT ILLNESS: The patient states that she noticed an ulcer on the buttocks region approximately 1 day prior to her hospitalization. The patient was recently hospitalized at [facility] for management of aggravation of trigeminal neuralgia. The patient at the current time states that she is not having any significant facial pain. The patient denies any fever, chills or night sweats. The patient denies any prior history of an ulceration in this area. The patient does have multiple sclerosis and spends much of her time in a wheelchair and in bed. She does, however, attempt to offload regularly and has been instructed to do this. The patient denies any other systemic complaints at this time. PAST MEDICAL HISTORY: Positive for multiple sclerosis and trigeminal neuralgia. PAST SURGICAL HISTORY: Positive for tubal ligation. MEDICATIONS: The medications were noted in the nursing notes and were reviewed. ALLERGIES: AMANTADINE AND AZATHIOPRINE. REVIEW OF SYSTEMS: Ten systems were reviewed in their entirety and positive findings were noted in the chief complaint and history of present illness. PHYSICAL EXAMINATION: GENERAL: The patient is currently lying in bed in no acute distress, alert and cooperative throughout. HEAD, EYES, EARS, NOSE, AND THROAT: Pupils equal and reactive to light. Sclerae clear. NECK: Supple. CHEST: Heart and lungs clear to auscultation. BACK: Reveals the presence of an ulceration stage II on the right buttocks region measuring 0.5 x 0.5 x 0.1 cm. There is no significant drainage noted from this site. There is no periwound erythema, no odor is noted. There is a purplish discoloration in a V-like pattern noted in the periwound area; however measuring 12 x 2.5 cm. IMPRESSION: Stage II pressure ulcer right buttocks region. PLAN: At this time, no debridement is indicated. The site will be managed with Optifoam, changed daily. The patient will be reevaluated as needed on a p.r.n. basis during hospitalization and can be followed in the outpatient clinic upon discharge. The patient is continued to be instructed on rotation, is currently on an AccuMax mattress, waffle boots will be applied for preventative reasons.
[2016-04-23] MEDS: CIPROFLOXACIN 500 MG TAB PO SCH (20:32)
--- NOTE | 2016-04-23 21:30 | Progress Note ---
Internal Med Progress Note Date of Service: Apr 23, 2016. Provider Documentation: SUBJECTIVE: feels much better today pain and discomfort on her face due to trigeminal neuralgia has resolved able to eat no discomfort OBJECTIVE: Vital Signs-as noted below Exam: General-no sign of distress Eyes-sclera non icteric Lungs-CTA Heart-regular S1/S2 Abdomen-soft, non tender Extremities-stage 2 sacral decub ulcer , present since admission Neuro-no focal deficit , Lab data as noted below. ASSESSMENT & PLAN: INTRACTABLE PAIN DUE TO TRIGEMINAL NEURALGIA -symptom has resolved - appreciate neurology input - continue steroid taper and start to taper Klonopin, continue gabapentin - pain management consult MS - on Tysabri injections q4 weeks -appreciate input from neurology LOW K : corrected follow lytes NEUROGENIC BLADDER - usually straight caths but will place Diaz whole hospitalized COMPLICATED UTI : urine culture E Coli has chronic Diaz empiric abx with Ciprofloxacin follow urine culture STAGE 2 SACRAL PRESSURE ULCER - present on admission - wound care consulted -appreciate input no I& D needed apply Optifoam, changed daily. provide local wound care , cont out pt follow up at the wound clinic cont off loading with frequent change of position / AccuMax mattress/waffle boots DVT PROPHYLAXIS - SQ Lovenox DISPOSITION lives at home with has private care givers will benefit with home health visiting nurse -pt is agreeable social service consulted for discharge planning Medicine follow up with Dr Beatty Vital Signs: Date Time Temp Pulse Resp B/P Pulse Ox O2 Delivery O2 Flow Rate FiO2 04/23/16 16:00 Room Air 04/23/16 15:01 36.8 63 16 90/57 99 Room Air 04/23/16 08:45 Room Air 04/23/16 07:12 36.6 56 16 91/49 99 Room Air 04/23/16 00:00 Room Air 04/22/16 23:28 36.8 73 20 95/61 100 Room Air Lab Results: Results Past 24 Hours Test 04/23/16 07:00 Range/Units White Blood Count 11.14 4.8-10.8 K/uL Red Blood Count 4.39 4.2-5.4 M/uL Hemoglobin 13.5 12.0-16.0 g/dL Hematocrit 40.3 37-47 % Mean Corpuscular Volume 91.8 80-100 fL Mean Corpuscular Hemoglobin 30.8 25-34 pg Mean Corpuscular Hemoglobin Concent 33.5 32-36 g/dl RDW Standard Deviation 49.5 36.4-46.3 fL RDW Coefficient of Variation 14.6 11.5-14.5 % Platelet Count 159 130-400 K/uL Mean Platelet Volume 10.0 7.4-10.4 fL Sodium Level 143 136-145 mmol/L Potassium Level 3.3 3.5-5.1 mmol/L Chloride Level 108 98-107 mmol/L Carbon Dioxide Level 26 21-32 mmol/L Anion Gap 9.0 3-11 mmol/L Blood Urea Nitrogen 16 7-18 mg/dl Creatinine 0.38 0.60-1.20 mg/dl Estimated GFR () 147.2 Estimated GFR (Non- 127.0 BUN/Creatinine Ratio 40.8 10-20 Random Glucose 91 70-99 mg/dl Calcium Level 8.3 8.5-10.1 mg/dl
[2016-04-24 00:28] VITALS: BP 95/64; PULSE 61; TEMP 36.8; O2SAT 97
[2016-04-24 07:14] LABS: HEMATOCRIT 37.4 % (37-47); MEAN CORPUSCULAR HEMOGLOBIN 30.2 pg (25-34); MEAN CORPUSCULAR HGB CONC 33.2 g/dl (32-36); MEAN PLATELET VOLUME 9.9 fL (7.4-10.4); PLATELET COUNT 165 K/uL (130-400); RED BLOOD COUNT 4.11 M/uL (4.2-5.4)
[2016-04-24 07:33] VITALS: BP 99/63; PULSE 61; TEMP 36.7; O2SAT 96
[2016-04-24 07:43] LABS: BLOOD UREA NITROGEN 11 mg/dl (7-18); BUN/CREATININE RATIO 29.6 (10-20); CALCIUM 8.9 mg/dl (8.5-10.1); CARBON DIOXIDE 26 mmol/L (21-32); CHLORIDE 110 mmol/L (98-107); CREATININE 0.37 mg/dl (0.60-1.20); GLUCOSE 75 mg/dl (70-99); MAGNESIUM 1.8 mg/dl (1.8-2.4); POTASSIUM 3.5 mmol/L (3.5-5.1); SODIUM 145 mmol/L (136-145)
[2016-04-24] MEDS: CLONAZEPAM 0.5 MG TAB PO SCH (07:50)
[2016-04-24] MEDS: BACLOFEN TAB 20 MG TAB PO SCH ×2 (07:51→13:46)
[2016-04-24] MEDS: ASCORBIC ACID 500 MG TAB PO SCH (07:51)
[2016-04-24] MEDS: GABAPENTIN 400 MG CAP PO SCH ×2 (07:52→13:46)
[2016-04-24] MEDS: CALCIUM 600MG + VIT D 400 IU TAB PO SCH (07:52)
[2016-04-24] MEDS: CEROVITE ADV FORMULA TAB PO SCH (07:53)
[2016-04-24] MEDS: OXYBUTYNIN CHLORIDE 5 MG TABCR PO SCH (07:53)
[2016-04-24] MEDS ORDERED: DULOXETINE HCL 60 MG CAP PO SCH (08:00)
[2016-04-24] MEDS: CIPROFLOXACIN 500 MG TAB PO SCH (09:00)
[2016-04-24] MEDS: ENOXAPARIN 30 MG/0.3 ML SYR SQ SCH (09:01)
[2016-04-24] MEDS ORDERED: CPR500 PO (12:09)
--- NOTE | 2016-04-24 12:09 | Discharge Instructions ---
Discharge Instructions Admission Reason for Admission: Trigeminal Neuralgia Discharge Discharge Diagnosis / Problem: TRIGEMINAL NEURALGIA /RECURRENT UTI /NEUROGENIC BLADDER Discharge Goals Goal(s): Improve disease control Activity Recommendations Activity Limitations: resume your previous activity . Instructions / Follow-Up Instructions / Follow-Up HOSPITAL FOLLOW UP ON 04/30/2016 @ 1:[address] Adolfo Garcia MD Internal Medicine [facility] CONTINUE FOLLOW UP AT WOUND CLINIC NEUROLOGY FOLLOW UP ON 05/24/2016 @ 10:30 AM WITH Keisha Marie PA-C Neurology [facility] FOLLOW UP AT WOUND CLINIC WITH DR PADILLA IN 1-2 WEEKS , PLEASE CALL OFFICE FOR APPOINTMENT PLACE OPTIFOAM DRESSING ON SACRAL WOUND , CHANGE DAILY , CONTINUE OFF LOADING -CHANGE /TURN POSITION EVERY 4-6 HRS ACCUMAX MATTRESS USE WAFFLE BOOTS WHILE ON BED TO PREVENT PRESSURE SORES ON HEELS ZOLOFT 100 MG DAILY IS DISCONTINUED AND STARTED ON CYMBALTA 60 MG DAILY THERE IS MINIMUM CHANCE OF WITHDRAWAL FROM DISCONTINUING ZOLOFT BUT IF YOU GET FEELING OF PERSISTENT HEADACHE , DIZZY SPELL , NAUSEA, FEELING OF PRESSURE AROUND HEAD AND NECK THESE ARE POSSIBLE SYMPTOM OF DISCONTINUATION OF ZOLOFT PLEASE NOTIFY DR SMITH OFFICE FOR THE SYMPTOM YOU CAN START TAKING LOW DOSE ZOLOFT 50 MG DAILY FOR 4 DAYS AND STOP CONTINUE TO TAKE CYMBALTA WITH OUT INTERRUPTIONS Current Hospital Diet Patient's current hospital diet: Regular Diet Discharge Diet Recommended Diet: Regular Diet Pending Studies Studies pending at discharge: no Medical Emergencies . Who to Call and When: Medical Emergencies: If at any time you feel your situation is an emergency, please call 911 immediately. . Non-Emergent Contact Non-Emergency issues call your: Primary Care Provider . . "Provider Documentation" section prepared by Priscilla Zurita. VTE Core Measure Inpt VTE Proph given/why not?: Enoxaparin (Lovenox)SQ
[2016-04-24] MEDS ORDERED: CYM60 PO (13:23)
--- NOTE | 2016-04-24 13:38 | PROGRESS NOTE ---
DATE: 04/24/2016 Jagruti looks great today. She ate breakfast, she can chew, there has been no pain now for 4 days and it looks as though she is going to be discharged. We are going to taper off on the Klonopin slowly and she is at low doses anyway at this point so this should be relatively easy, I told her to continue on the b.i.d. dosing for a few more days and go to nocturnal dosing for about a week and then stop it. Apparently her Zoloft has been switched over to Cymbalta. I have no problem with this, there may be a slight superiority on Cymbalta over Zoloft and she has been started on 60 mg which is probably reasonable as she was taking 100 mg of Zoloft on an outpatient basis. All her other medications are going to remain the same, i.e., the gabapentin and the baclofen and hopefully this bout of trigeminal pain will remain controlled and we will have to go through a neurosurgical issue. Pain management has suggested the option of a baclofen pump. Again, this is something that needs to perhaps be considered in the future and discussed with Dr. Osborne. I suggested she get in touch with our office on Tuesday and to let us know how she is doing and by that point perhaps will have some input from the neurosurgery group at [facility] who apparently do a specialized procedure for facial pain in MS patients. At this rate however, it looks as though it is not going to be necessary.
--- NOTE | 2016-04-24 14:33 | Progress Note ---
Internal Med Progress Note Date of Service: Apr 24, 2016. Provider Documentation: SUBJECTIVE: denies of any symptom no headache , no pain in face tolerating diet well feels OK present at bedside stable to be discharged home today OBJECTIVE: Vital Signs-as noted below Exam: General-no sign of distress Eyes-sclera non icteric Lungs-CTA Heart-regular S1/S2 Abdomen-soft, non tender Extremities-stage 2 sacral decub ulcer , present since admission Neuro-no focal deficit , Lab data as noted below. ASSESSMENT & PLAN: INTRACTABLE PAIN DUE TO TRIGEMINAL NEURALGIA -symptom has resolved - appreciate neurology input - continue gabapentin - pain management consult -appreciated -started on Cymbalta 60 mg daily Zoloft 100 mg daily is discontinued -pt is counselled regarding safety of taking of Zoloft and starting on Cymbalta has not had any adverse symptom in past 24 hrs -in case of withdrawal headache, dizzy spell , nausea -which can be developed later pt is asked to take Zoloft 50 mg daily for 4 days and stop scheduled to have follow up with Neurology Keisha Marie PA-C in few week MULTIPLE SCLEROSIS - on Tysabri injections q4 weeks -appreciate input from neurology -Cont out pt follow up with Neurology LOW K : corrected NEUROGENIC BLADDER - does intermittent straight cath at home COMPLICATED UTI : urine culture E Coli -briggs sensitive required intermittent straight cath /neurogenic bladder PO Ciprofloxacin for total 5 days STAGE 2 SACRAL PRESSURE ULCER - present on admission - wound care consulted -appreciate input no I& D needed apply Optifoam, changed daily. provide local wound care , cont out pt follow up at the wound clinic cont off loading with frequent change of position / AccuMax mattress/waffle boots DVT PROPHYLAXIS - SQ Lovenox DISPOSITION discharge home today Medicine follow up with Dr Beatty Vital Signs: Date Time Temp Pulse Resp B/P Pulse Ox O2 Delivery O2 Flow Rate FiO2 04/24/16 15:55 37.0 71 18 101/68 96 Room Air 04/24/16 15:49 36.7 61 16 96 Room Air 04/24/16 08:00 Room Air 04/24/16 07:33 36.7 61 16 99/63 96 Room Air 04/24/16 00:28 36.8 61 18 95/64 97 Room Air 04/24/16 00:00 Room Air Lab Results: Results Past 24 Hours Test 04/24/16 06:07 Range/Units White Blood Count 10.30 4.8-10.8 K/uL Red Blood Count 4.11 4.2-5.4 M/uL Hemoglobin 12.4 12.0-16.0 g/dL Hematocrit 37.4 37-47 % Mean Corpuscular Volume 91.0 80-100 fL Mean Corpuscular Hemoglobin 30.2 25-34 pg Mean Corpuscular Hemoglobin Concent 33.2 32-36 g/dl RDW Standard Deviation 49.3 36.4-46.3 fL RDW Coefficient of Variation 14.8 11.5-14.5 % Platelet Count 165 130-400 K/uL Mean Platelet Volume 9.9 7.4-10.4 fL Sodium Level 145 136-145 mmol/L Potassium Level 3.5 3.5-5.1 mmol/L Chloride Level 110 98-107 mmol/L Carbon Dioxide Level 26 21-32 mmol/L Anion Gap 9.0 3-11 mmol/L Blood Urea Nitrogen 11 7-18 mg/dl Creatinine 0.37 0.60-1.20 mg/dl Estimated GFR () 148.5 Estimated GFR (Non- 128.2 BUN/Creatinine Ratio 29.6 10-20 Random Glucose 75 70-99 mg/dl Calcium Level 8.9 8.5-10.1 mg/dl Magnesium Level 1.8 1.8-2.4 mg/dl
[2016-04-24 15:49] VITALS: BP 99/63; PULSE 61; TEMP 36.7; O2SAT 96
[2016-04-24 15:55] VITALS: BP 101/68; PULSE 71; TEMP 37; O2SAT 96
--- NOTE | 2016-04-24 16:09 | Discharge Summary ---
Discharge Summary Admission Date: Apr 22, 2016 at 17:06 Discharge Date: Apr 24, 2016 Discharge Disposition: Home with services Principal Diagnosis: TRIGEMINAL NEURALGIA /RECURRENT UTI /NEUROGENIC BLADDER Consultations: NEUROLOGY PAIN MANAGEMENT WOUND CARE Medication Reconciliation New Medications: Ciprofloxacin (Ciprofloxacin HCl) 500 Mg Tab 500 MG PO Q12 for 7 Days, #14 TAB Duloxetine HCl (Duloxetine HCl) 60 Mg Cap 60 MG PO QAM for 30 Days, #30 CAP 6 Refills Continued Medications: Alendronate/Cholecalciferol (Fosamax+D 70MG/2800 Iu) 70 Mg Tab 1 TABLET PO WK, TAB Ascorbic Acid (Vitamin C) 500 Mg Chw 500 MG PO DAILY Baclofen (Lioresal) 20 Mg Tab 30 MG PO DAILY, TAB Baclofen (Lioresal) 20 Mg Tab 20 MG PO BID, TAB afternoon and evening Calcium Carbonate-Cholecalcife (Caltrate 600+D) 1 Tab Tab 1 TAB PO BID Clonazepam (Klonopin) 0.5 Mg Tab 0.5 MG PO BID, TAB Gabapentin (Neurontin) 400 Mg Cap 800 MG PO TID, CAP Multivitamins/Minerals (Mvi With Minerals) Tab 1 TAB PO DAILY, TAB Natalizumab (Tysabri) 300 Mg/15 Ml Inj 300 MG IV Q4WK Oxybutynin Chloride Er (Ditropan Xl) 10 Mg Tab 10 MG PO BID, TAB Oxycodone/Acetaminophen 10MG/325MG (Oxycodone/Acetaminophen 10MG/325MG) 1 Tab Tab 1 TAB PO Q4H PRN for Pain for 30 Days, #180 TAB Prednisone (Prednisone) 20 Mg Tab 0 PO DAILY, TAB on taper - 20mg x 1 day, 10mg x 4days, then stop Probiotic Product (Probiotic) 1 Cap Cap 1 CAP PO Q2D Discontinued Medications: Sertraline (Zoloft) 100 Mg Tab 100 MG PO DAILY, TAB Referrals At Discharge Follow up Referrals: Physician Referral - Please Call For Appointment with Fito Padilla, DO Admission Information HPI (per Admitting provider): 45 year old female who presents to the ER with intractable right cheek pain. Patient has history of MS and trigeminal neuralgia. She has been dealing with increased pain from trigeminal neuralgia for the past one month. She was initially treated with Toradol and Prednisone. She then saw neuro who gave her 1 gram IV solu-medrol, IVF, and Klonopin. She continued to have pain so her Percocet and Klonopin were increased. Neuro wanted patient to get an MRI to see if there was any possible intervention for neurosurgery to do; however, due to the increased pain, patient has been unable to go for the MRI. She reports a very poor appetite because chewing can sometimes trigger the pain. Patient reports the pain is located over her maxillary bone and will sometimes radiate into her upper jaw. She reports she gets a sensation of a feather brushing over her nose and then the pain hits. She denies chest pain and shortness of breath. No lightheadedness, dizziness, diaphoresis, or syncope. She denies abdominal pain, nausea, vomiting, or diarrhea. Patient's caths her 2-3 times a day and reports her urine output has been down. Patient had a brain MRI in the ED that does not show any acute findings. Physical Exam (per Admitting): General Appearance: + pertinent finding (appears weak and tired) Head: normocephalic Eyes: normal inspection ENT: + pertinent finding (dry lips and mucous membranes) Neck: supple, no JVD Respiratory/Chest: lungs clear, normal breath sounds, no respiratory distress Cardiovascular: regular rate, rhythm, no edema, normal peripheral pulses Abdomen/GI: normal bowel sounds, non tender, soft Extremities/Musculoskelatal: normal inspection, no calf tenderness Neurologic/Psych: no motor/sensory deficits (has BLLE weakness from MS - no acute changes), alert, normal mood/affect, oriented x 3 Skin: normal color, warm/dry, + pertinent finding (please refer to wound care note regarding deep tissue injury over left buttocks and sacral area) Hospital Course INTRACTABLE PAIN DUE TO TRIGEMINAL NEURALGIA -symptom has resolved - appreciate neurology input - continue gabapentin - pain management consult -appreciated -started on Cymbalta 60 mg daily Zoloft 100 mg daily is discontinued -pt is counselled regarding safety of taking of Zoloft and starting on Cymbalta has not had any adverse symptom in past 24 hrs -in case of withdrawal headache, dizzy spell , nausea -which can be developed later pt is asked to take Zoloft 50 mg daily for 4 days and stop scheduled to have follow up with Neurology Keisha Marie PA-C in few week MULTIPLE SCLEROSIS - on Tysabri injections q4 weeks -appreciate input from neurology -Cont out pt follow up with Neurology LOW K : corrected NEUROGENIC BLADDER - does intermittent straight cath at home COMPLICATED UTI : urine culture E Coli -briggs sensitive required intermittent straight cath /neurogenic bladder PO Ciprofloxacin for total 5 days STAGE 2 SACRAL PRESSURE ULCER - present on admission - wound care consulted -appreciate input no I& D needed apply Optifoam, changed daily. provide local wound care , cont out pt follow up at the wound clinic cont off loading with frequent change of position / AccuMax mattress/waffle boots DVT PROPHYLAXIS - SQ Lovenox DISPOSITION discharge home today Medicine follow up with Dr Smith Total time spent on discharge = 35 M INS This includes examination of the patient, discharge planning, medication reconciliation, and communication with other providers. Discharge Instructions DI: Medical v4 Discharge Instructions Admission Reason for Admission: Trigeminal Neuralgia Discharge Discharge Diagnosis / Problem: TRIGEMINAL NEURALGIA /RECURRENT UTI /NEUROGENIC BLADDER Discharge Goals Goal(s): Improve disease control Activity Recommendations Activity Limitations: resume your previous activity . Instructions / Follow-Up Instructions / Follow-Up HOSPITAL FOLLOW UP ON 04/30/2016 @ 1:[address] Adolfo Garcia MD Internal Medicine [facility] CONTINUE FOLLOW UP AT WOUND CLINIC NEUROLOGY FOLLOW UP ON 05/24/2016 @ 10:30 AM WITH Keisha Marie PA-C Neurology [facility] FOLLOW UP AT WOUND CLINIC WITH DR PADILLA IN 1-2 WEEKS , PLEASE CALL OFFICE FOR APPOINTMENT PLACE OPTIFOAM DRESSING ON SACRAL WOUND , CHANGE DAILY , CONTINUE OFF LOADING -CHANGE /TURN POSITION EVERY 4-6 HRS ACCUMAX MATTRESS USE WAFFLE BOOTS WHILE ON BED TO PREVENT PRESSURE SORES ON HEELS ZOLOFT 100 MG DAILY IS DISCONTINUED AND STARTED ON CYMBALTA 60 MG DAILY THERE IS MINIMUM CHANCE OF WITHDRAWAL FROM DISCONTINUING ZOLOFT BUT IF YOU GET FEELING OF PERSISTENT HEADACHE , DIZZY SPELL , NAUSEA, FEELING OF PRESSURE AROUND HEAD AND NECK THESE ARE POSSIBLE SYMPTOM OF DISCONTINUATION OF ZOLOFT PLEASE NOTIFY DR SMITH OFFICE FOR THE SYMPTOM YOU CAN START TAKING LOW DOSE ZOLOFT 50 MG DAILY FOR 4 DAYS AND STOP CONTINUE TO TAKE CYMBALTA WITH OUT INTERRUPTIONS Current Hospital Diet Patient's current hospital diet: Regular Diet Discharge Diet Recommended Diet: Regular Diet Pending Studies Studies pending at discharge: no Medical Emergencies . Who to Call and When: Medical Emergencies: If at any time you feel your situation is an emergency, please call 911 immediately. . Non-Emergent Contact Non-Emergency issues call your: Primary Care Provider . . "Provider Documentation" section prepared by Priscilla Zurita. VTE Core Measure Inpt VTE Proph given/why not?: Enoxaparin (Lovenox)SQ Additional Copies To Adolfo Garcia M.D.
[2016-05-17] MEDS ORDERED: AMOX500C3 PO (07:30)
== END 2016-04-24 17:28 | disposition home health service (06) | DRG 74 ==
LOC: ENRESERVDT → ENRESERVTM → C.EDB 11:41 → C.4E 17:06
PROVIDERS: ADMIT Internal Medicine; ATTEND Hospitalist
DX: G50.0 Trigeminal neuralgia (principal); N39.0 Urinary tract infection, site not specified; N31.9 Neuromuscular dysfunction of bladder, unspecified; G35 Multiple sclerosis; E86.0 Dehydration; F32.9 Major depressive disorder, single episode, unspecified; L89.312 Pressure ulcer of right buttock, stage 2; L89.152 Pressure ulcer of sacral region, stage 2; Z80.9 Family history of malignant neoplasm, unspecified

== ENCOUNTER → 2016-06-18 | Outpatient (CLI) | payer OTHER ==
[~2016-06-18] MED LIST changes: -ACET-749 PO; -BACL10TA PO; -CLON0.5T3 PO; +CYM60 PO; -HYDR-5688 PO; -OXYC-57 PO; +OXYC-88 PO; -SERT-234 PO
[2016-06-23 03:25] LABS: JCV ANTIBODY NEGATIVE; JCV INDEX 0.13
== END | disposition home or self-care (01) ==
LOC: C.LAB1850 13:46
PROVIDERS: ATTEND Psychiatry & Neurology Neurology
DX: G35 Multiple sclerosis (principal); G50.0 Trigeminal neuralgia

== ENCOUNTER → 2016-11-29 | Outpatient (CLI) | payer OTHER | END | disposition home or self-care (01) | LOC: C.LAB1850 11:40 | PROVIDERS: ATTEND Internal Medicine Cardiovascular Disease | DX: G35 Multiple sclerosis (principal) ==

== ENCOUNTER → 2017-03-18 | Outpatient (CLI) | payer OTHER | END | disposition home or self-care (01) | LOC: C.LAB1850 11:43 | PROVIDERS: ATTEND Family Medicine | DX: E78.5 Hyperlipidemia, unspecified (principal) ==

== ENCOUNTER 2018-12-02 13:46 | Inpatient (IN) ==
[2018-12-02] MEDS ORDERED: KETOROLAC TROMETHAMINE 15 MG/ML VIAL IV ONE (14:31)
[2018-12-02] MEDS ORDERED: ONDANSETRON INJ 2 MG/ML 2 ML VIAL IV STA (14:31)
[2018-12-02] MEDS ORDERED: SODIUM CHLORIDE 0.9% 1000ML 1,000 ML IV SCH (14:45)
[2018-12-02] MEDS: HYDROmorphone INJ 1 MG/ML SYRINGE IV PRN ×2 (15:45→16:36)
[2018-12-02 15:48] LABS: Basophils # (auto) 0.02 K/uL (0-0.2); Basophils % (auto) 0.2 %; Eosinophils # (auto) 0.27 K/uL (0-0.5); Hematocrit (blood only) 42.3 % (37-47); Hemoglobin 13.9 g/dL (12.0-16.0); Immature Granulocytes # (auto) 0.04 K/uL (0.00-0.02); Immature Granulocytes % (auto) 0.4 %; Lymphocytes # (auto) 2.42 K/uL (1.2-3.4); Lymphocytes % (auto) 26.5 %; Mean Corpuscular Hemoglobin 29.8 pg (25-34); Mean Corpuscular Hgb Conc 32.9 g/dL (32-36); Mean Corpuscular Volume 90.8 fL (80-100); Mean Platelet Volume 9.4 fL (7.4-10.4); Monocytes # (auto) 0.65 K/uL (0.11-0.59); Monocytes % (auto) 7.1 %; Neutrophils # (auto) 5.73 K/uL (1.4-6.5); Neutrophils % (auto) 62.8 %; Platelet Count 176 K/uL (130-400); RDW Coefficient of Variation 13.8 % (11.5-14.5); RDW Standard Deviation 45.8 fL (36.4-46.3); Red Blood Count 4.66 M/uL (4.2-5.4); White Blood Count 9.13 K/uL (4.8-10.8)
[2018-12-02 16:05] LABS: Alanine Aminotransferase 19 U/L (12-78); Albumin Level 3.5 gm/dl (3.4-5.0); Aspartate Aminotransferase 23 U/L (15-37); BUN Creatinine Ratio 23.5 (10-20); Blood Urea Nitrogen 13 mg/dl (7-18); Carbon Dioxide 17 mmol/L (21-32); Chloride 108 mmol/L (98-107); Est GFR (African American) 128.4; Est GFR (Non-African American) 110.8; Glucose 60 mg/dl (70-99); Potassium 4.2 mmol/L (3.5-5.1); Sodium 139 mmol/L (136-145)
[2018-12-02 16:08] LABS: Albumin Globulin Ratio 0.8 (0.9-2); Alkaline Phosphatase 63 U/L (45-117); Bilirubin,Total 0.7 mg/dl (0.2-1); Globulin 4.6 gm/dl (2.5-4.0); Total Protein 8.1 gm/dl (6.4-8.2)
[2018-12-02] MEDS ORDERED: DEXTROSE 50% 50 ML SYRINGE IV ONE (16:45)
--- NOTE | 2018-12-02 17:41 | History & Physical Report ---
Date of Service December 02, 2018 Assessment & Plan (1) Trigeminal neuralgia: Has history of MS with severe trigeminal neuralgia Not being able to take oral medications or any food for the last 4 days This is her second ER visit since yesterday Will observe the patient in the [facility] with intravenous pain medications Has an appointment with neurosurgery at [facility] on Tuesday Likely be discharged tomorrow Present on Admission?: Yes (2) Facial pain: Secondary to trigeminal neuralgia Not been able to talk or eat anything by mouth due to pain We will try morphine 4 mg IV q. 3 hourly Continue with her oral medications (3) Dehydration: Secondary to not being need to continue anything for the last 4 days Creatinine is low likely due to low protein intake or poor body mass Has low CO2 secondary to starvation We will give intravenous fluid with D5 and NS for low blood pressure and also hypoglycemia (4) Hypoglycemia: Noted to have low blood sugar 60 in the emergency room Received 50 mL of 50% dextrose We will continue with D5 half NS (5) MS (multiple sclerosis): Seems to be controlled except trigeminal neuralgia She has an appointment with neurosurgery department at [facility] for possible gamma knife procedure in the near future He has had the procedure about 1-1/2-year ago and that worked for her DVT prophylaxis SCDs for now CODE STATUS Full History of Present Illness Chief Complaint: Severe right-sided facial pain and inability to drink or eat for the last 4 days Primary Care Provider: Adolfo Garcia MD She is a 48-year-old female with significant past medical history of multiple sclerosis with severe trigeminal neuralgia, neurogenic bladder, osteoporosis, paraplegia secondary to MS, mitral valve prolapse, seizure disorder and spasticity has been complaining of increasing pain on the right side of the face due to trigeminal neuralgia. She has not been able to eat or drink or even talk due to the pain for the last 4 days too. She came to emergency room yesterday and was given some intravenous pain medications and she is clinically better and went home. Pain has been increasing since this morning and she is back. Denies any fever and/or chills, denies any worsening symptoms of MS, any headache or any new symptoms to suggest involvement of the MS, no fever and/or chills, no nausea or vomiting and no problem with urine and her bowel habit. In the ER she was noted to have a glucose of 60 and dehydration with early metabolic acidosis. She has a started with the intravenous fluid of normal saline with 5% dextrose and she was given intravenous pain medications to control pain. She has had a consult with the neurosurgery department at [facility] with and has an appointment with neurosurgery department on Tuesday to evaluate for possible gamma knife surgery for her problem. She has had gamma knife surgery about 1-1/2 years back and that improved her condition. Allergies Allergy/AdvReac Type Severity Reaction Status Date / Time amantadine Allergy Intermediate SWELLING Verified 12/02/18 15:34 carbamazepine Allergy Unknown RASH Verified 12/02/18 15:34 levetiracetam Allergy Unknown rash Verified 04/22/16 20:54 azathioprine AdvReac Intermediate INCREASED Unverified 04/22/16 18:54 LFT'S/ABDOMINAL PAIN Home Medications Home Medications Medication Instructions Recorded Confirmed Type alendronate 70 mg PO WK 12/02/18 12/02/18 History baclofen 0 mg PO DIRECTED 12/02/18 12/02/18 History calcium carbonate [Calcium 600] 0 mg PO DAILY 12/02/18 12/02/18 History clonazepam 0.5 mg PO BID 12/02/18 12/02/18 History duloxetine 60 mg PO DAILY 12/02/18 12/02/18 History gabapentin 100 mg PO TID 12/02/18 12/02/18 History gabapentin [Neurontin] 400 mg PO TID 12/02/18 12/02/18 History hydrocodone-acetaminophen 1 tab PO Q6H PRN 12/02/18 12/02/18 History multivitamin 1 tab PO DAILY 12/02/18 12/02/18 History natalizumab [Tysabri] 300 mg IV .Q 4 WEEKS 12/02/18 12/02/18 History oxybutynin chloride 10 mg PO BID 12/02/18 12/02/18 History Past Med/Surg History Social History Preferred Language: Bhutanese marital status: Current Living Situation: Spouse current occupational status: disabled Feels Safe at Home: Yes Smoking Status: Never smoker Review of Systems Review of Systems: All systems reviewed & are unremarkable except as noted in HPI & below Neurologic: Severe right sided pain due to trigeminal neuralgia Physical Exam Physical Exam: In moderate distress in bed Constitutional: well developed, well nourished and + acute distress; not ill appearing Eyes: PERRL, conjunctivae normal, anicteric sclerae ENMT: external ear and nose normal, oropharynx normal Neck: trachea midline, no thyromegaly Respiratory: normal respiratory effort Auscultation: lungs clear to auscultation bilaterally Cardiovascular: Rate/Rhythm: regular rate and regular rhythm Heart Sounds: no murmur Gastrointestinal (Abdomen): Inspection/Auscultation: abdomen normal to inspection and normal bowel sounds Percussion/Palpation: abdomen soft Musculoskeletal: No acute arthritis in any of the joints Neurologic: Has paraplegia with minimal movement to lower extremities.Her extremities are better but wick Lymphatic: no cervical or axillary lymphadenopathy Results & Data Vital Signs (Past 12 Hours) Vital Signs Pulse Pulse Resp BP BP Pulse Ox 12/02/18 16:37 111 H 16 96/66 L 97 12/02/18 15:41 87 20 108/68 98 12/02/18 15:35 98 12/02/18 13:48 90 20 109/60 96 Laboratory Results Short CBC 12/02/18 Range/Units 15:35 WBC 9.13 (4.8-10.8) K/uL Hgb 13.9 (12.0-16.0) g/dL Hct 42.3 (37-47) % Plt Count 176 (130-400) K/uL BMP 12/02/18 15:35 Sodium 139 Potassium 4.2 Chloride 108 H Carbon Dioxide 17 L BUN 13 Creatinine 0.54 L Glucose 60 L Calcium 9.0 Liver Function 12/02/18 Range/Units 15:35 Total Bilirubin 0.7 (0.2-1) mg/dl AST 23 (15-37) U/L ALT 19 (12-78) U/L Alkaline Phosphatase 63 (45-117) U/L Albumin 3.5 (3.4-5.0) gm/dl Medications Administered Current Inpatient Medications Hydromorphone HCl (Dilaudid) 1 mg IV Q15M PRN PRN Reason: Pain Stop: 12/16/18 14:30 Last Admin: 12/02/18 16:36 Dose: 1 mg Documented by: Dextrose/Sodium Chloride (D5w And Nss) 1,000 mls @ 100 mls/hr IV .Q10H ELLI Stop: 12/03/18 23:29 Lidocaine (Lidoderm 5%) 1 patch TD QAM ELLI Stop: 01/01/19 17:29 Miscellaneous (Remove Lidoderm Patch) 1 ea N/A DAILY@2100 [facility] Stop: 01/01/19 20:59 Morphine Sulfate (Morphine Sulfate) 4 mg IV Q3H PRN PRN Reason: Pain Stop: 12/16/18 17:22 Code Status & VTE Plan VTE Prophylaxis Plan VTE Prophylaxis will be ordered: Yes
[2018-12-02] MEDS: LIDOCAINE 5% 1 PATCH TD SCH (19:34)
[2018-12-02] MEDS: D5W AND NSS 1,000 ML IV SCH (20:26)
[2018-12-02] MEDS: HYDROCODONE/ACETAMOPHEN 5/325MG TAB PO PRN (20:31)
[2018-12-02] MEDS: clonazePAM 0.5 MG TAB PO SCH (20:31)
[2018-12-02] MEDS: GABAPENTIN 100 MG CAP PO SCH (20:32)
[2018-12-02] MEDS: BACLOFEN 20 MG TAB PO SCH (20:33)
[2018-12-02] MEDS: OXYBUTYNIN CHLORIDE XL 5 MG TABCR PO SCH (20:34)
[2018-12-02] MEDS: GABAPENTIN 400 MG CAP PO SCH (20:34)
[2018-12-02] MEDS ORDERED: INFLUENZA ADMINISTRATION CHARGE ONE (21:00)
[2018-12-02] MEDS ORDERED: INFLUENZA VIRUS QUAD VACCINE 0.5 ML SYR IM ONE (21:00)
--- NOTE | 2018-12-02 23:08 | Emergency Department Note ---
Entered by Eilza Stewart acting as a scribe for Barrie Mccracken MD ED Provider Note CHIEF COMPLAINT: Facial Injury/ Pain HISTORY OF PRESENT ILLNESS: The patient is a 48 year old female who presents to the Emergency Room with complaints of worsening right sided face pain starting 5 days ago. The patients states that the patient has a history of trigeminal neuralgia and MS. He states that she takes Hydrocodone and Gabapentin for her trigeminal neuralgia and Tegretol and Amantadine for her MS. He states that over the last 5 days she has not been able to take the medications because her right sided facial pain is so bad she cannot open her jaw. He states that because of it she also has not been able to eat or drink. He notes that he last ate half a sandwich 5 days ago and a few ounces of water 2 days ago. The patients states that they came to the ED yesterday for the pain and she was able to get her medications down after Morphine. He reports that today it came back though and was worse than before. He states that now she cant swallow because of the pain is so bad, including water. He notes that she is even having trouble swallowing her own spit. The patients complains of the patient having blurry vision from her pain. He notes that the patients leg are shot and are numb all the time. He notes that he has to cath her as well at baseline. The patient denies left sided facial pain. Pt denies LOC, headache, fevers, chills, diaphoresis, neck pain, chest pain, breathing difficulties, nausea, vomiting, abdominal pain, back pain, melena, hematochezia, diarrhea, urinary symptoms, lymphadenopathy, rash, or other complaints. REVIEW OF SYSTEMS: See HPI for pertinent positives and negatives. A total of ten systems were reviewed and were otherwise negative. PMHx/PSHx: MS, Trigeminal Neuralgia, , Tubal Ligation SOCIAL HISTORY: Patient lives at home with her . She is disabled. She denies ever being a smoker. PHYSICAL EXAM: GENERAL: Awake, alert, very uncomfortable appearing, in moderate distress HENT: Normocephalic, atraumatic. Oropharynx unremarkable. Dry mucus membranes. Tenderness in the ophthalmic and maxillary division of the right trigeminal nerve. EYES: PERRL. Normal conjunctiva. Sclera non-icteric. NECK: Inspection normal. Non-tender. Supple. No nuchal rigidity. FROM. No masses. RESPIRATORY: Clear to auscultation. No wheezes. No rales. Normal respiratory effort. CARDIAC: Normal rate. Normal rhythm. No murmurs. No rubs. Extremities warm and well perfused. Pulses equal. No JVD. GI: Soft, non-distended. No tenderness to palpation. No rebound or guarding. No masses. RECTAL: Deferred. MUSCULOSKELETAL: Atraumatic. Chest examination reveals no tenderness. The back is symmetrical on inspection without obvious abnormality. There is no CVA tenderness to palpation. No joint edema. LOWER EXTREMITIES: Calves are equal size bilaterally and non-tender. No edema. No discoloration. NEURO: Normal sensorium. Decreased sensation and weakness to the lower extremities. SKIN: No rash or jaundice noted. EMERGENCY DEPARTMENT COURSE: 1428: Past medical records reviewed. The patient was evaluated in room B12B, and a complete history and physical examination were performed. 1535: I reevaluated the patient and she is just now getting medications. 1617: I reevaluated the patient and she is feeling better, but it is going to get a second dose. 1648: I reevaluated the patient and updated her and her on her test results. I discussed the treatment plan with them. They verbally agree and understand. 1651: I discussed the patient's case with Dr. Dayanna Jasmine Hospitalist. He will evaluate the patient for further management. MEDICAL DECISION MAKING: B12 Prior records/ancillary studies reviewed. Patient was previously here yesterday. Treated with IV morphine. Triage Nursing notes reviewed and agree them. The patient's history was concerning for facial pain with a history of trigeminal neuralgia and MS. Differential diagnosis: Etiologies such as flare of trigeminal neuralgia, flare of MS, migraine headache, meningitis, sinusitis, dental infection, infection, tumor, headache, sinus thrombosis, arterial dissection, as well as others were entertained. Physical examination findings: As above patient has weakness and numbness in the lower extremities which family states is chronic. ER treatment provided: IV lock Saline hydration IV Dilaudid x2 IV Zofran IV Toradol IV dextrose 50% one half amp On reassessment the patient felt somewhat better. Diagnostics interpreted by me: ECG: Normal sinus rhythm without ischemia. The labs revealed unremarkable CBC. Chemistry panel revealed hyperglycemia. The patient is also dehydrated. Imaging studies: Deferred The patient is not doing well at home. She is not able to eat or drink. She is dehydrated. She was hypoglycemic. Further management in the hospital is appropriate. Patient and family were very much in agreement. Consultation: A consultation was placed with the hospitalist. The case was discussed and diagnostics were reviewed. The patient was evaluated in the ER for further treatment. IMPRESSION: Facial pain, Dehydration, Hypoglycemia PLAN: Being evaluated by the hospitalist The scribe's documentation has been prepared under my direction and personally reviewed by me in its entirety. I confirm that the note above accurately reflects all work, treatment, procedures, and medical decision making performed by me. Impression & Plan Facial pain, Dehydration, Hypoglycemia Past Med/Surg History Social History Preferred Language: [place] Citizen Communication Ability: Effective Beliefs That Will Affect Care: Zoroastrian marital status: Current Living Situation: Spouse current occupational status: disabled Other Information That Helps Us Care for You: No Feels Safe at Home: Yes Safety Concerns: Feels Safe At This Time Smoking Status: Never smoker Hx Alcohol Use: No Hx Substance Use: No Results & Data Vital Signs Vital Signs - 24 hr 12/02/18 13:48 12/02/18 15:35 12/02/18 15:41 Temperature Source Oral Sepsis Recent Fever Within 48 Hours No Sepsis New/Unexplained Change in Mental Status No Sepsis Action Taken by Nursing No Action Required Pulse Rate 90 Pulse Rate [Left Finger] 87 Pulse Rhythm Regular Pulse Strength Normal Respiratory Rate 20 20 Respiratory Effort / Characteristics Non-Labored Spontaneous Non-Labored Respiratory Depth Normal Normal Respiratory Pattern Regular Regular Blood Pressure 109/60 Blood Pressure [Right Arm] 108/68 Blood Pressure Mean 76 Blood Pressure Mean [Right Arm] 81 Blood Pressure Position Sitting Pulse Oximetry 96 98 98 Oxygen Delivery Method Room Air Room Air Room Air 12/02/18 16:37 Temperature Source Sepsis Recent Fever Within 48 Hours Sepsis New/Unexplained Change in Mental Status Sepsis Action Taken by Nursing Pulse Rate Pulse Rate [Left Finger] 111 H Pulse Rhythm Pulse Strength Respiratory Rate 16 Respiratory Effort / Characteristics Non-Labored Respiratory Depth Normal Respiratory Pattern Regular Blood Pressure Blood Pressure [Right Arm] 96/66 L Blood Pressure Mean Blood Pressure Mean [Right Arm] 76 Blood Pressure Position Pulse Oximetry 97 Oxygen Delivery Method Room Air Home Medications Current Medication List: was personally reviewed by me Laboratory Data Attestation: I reviewed the patient's lab results. Result diagrams: 12/02/18 15:35 12/02/18 15:35 Lab Results 12/02/18 12/02/18 Range/Units 15:35 15:35 WBC 9.13 (4.8-10.8) K/uL RBC 4.66 (4.2-5.4) M/uL Hgb 13.9 (12.0-16.0) g/dL Hct 42.3 (37-47) % MCV 90.8 (80-100) fL MCH 29.8 (25-34) pg MCHC 32.9 (32-36) g/dL RDW Std Deviation 45.8 (36.4-46.3) fL RDW Coeff of Cristina 13.8 (11.5-14.5) % Plt Count 176 (130-400) K/uL MPV 9.4 (7.4-10.4) fL Immature Gran % (Auto) 0.4 % Neut % (Auto) 62.8 % Lymph % (Auto) 26.5 % [place] % (Auto) 7.1 % Eos % (Auto) 3.0 % Baso % (Auto) 0.2 % Immature Gran # (Auto) 0.04 H (0.00-0.02) K/uL Neut # (Auto) 5.73 (1.4-6.5) K/uL Lymph # (Auto) 2.42 (1.2-3.4) K/uL [place] # (Auto) 0.65 H (0.11-0.59) K/uL Eos # (Auto) 0.27 (0-0.5) K/uL Baso # (Auto) 0.02 (0-0.2) K/uL Sodium 139 (136-145) mmol/L Potassium 4.2 (3.5-5.1) mmol/L Chloride 108 H (98-107) mmol/L Carbon Dioxide 17 L (21-32) mmol/L Anion Gap 14.0 H (3-11) BUN 13 (7-18) mg/dl Creatinine 0.54 L (0.6-1.2) mg/dl Est Cr Clr Drug Dosing Not Reportable Est GFR ( Amer) 128.4 Est GFR (Non-Af Amer) 110.8 BUN/Creatinine Ratio 23.5 H (10-20) Glucose 60 L (70-99) mg/dl Calcium 9.0 (8.5-10.1) mg/dl Total Bilirubin 0.7 (0.2-1) mg/dl AST 23 (15-37) U/L ALT 19 (12-78) U/L Alkaline Phosphatase 63 (45-117) U/L Total Protein 8.1 (6.4-8.2) gm/dl Albumin 3.5 (3.4-5.0) gm/dl Globulin 4.6 H (2.5-4.0) gm/dl Albumin/Globulin Ratio 0.8 L (0.9-2) Administered Medications Hydrocodone Bitart/Acetaminophen ([place] 5/325) 1 tab PO Q6H PRN PRN Reason: Pain Stop: 12/16/18 18:19 Last Admin: 12/02/18 20:31 Dose: 1 tab Documented by: [id number] Baclofen (Lioresal) 20 mg PO HS ELLI Stop: 01/01/19 20:59 Last Admin: 12/02/18 20:33 Dose: 20 mg Documented by: [id number] Clonazepam (Klonopin) 0.5 mg PO BID ELLI Stop: 01/01/19 20:59 Last Admin: 12/02/18 20:31 Dose: 0.5 mg Documented by: [id number] Gabapentin (Neurontin) 100 mg PO TID ELLI Stop: 01/01/19 20:59 Last Admin: 12/02/18 20:32 Dose: 100 mg Documented by: [id number] Gabapentin (Neurontin) 400 mg PO TID ELLI Stop: 01/01/19 20:59 Last Admin: 12/02/18 20:34 Dose: 400 mg Documented by: [id number] Dextrose/Sodium Chloride (D5w And Nss) 1,000 mls @ 100 mls/hr IV .Q10H ELLI Stop: 12/04/18 00:14 Last Admin: 12/02/18 20:26 Dose: 100 mls/hr Documented by: [id number] Lidocaine (Lidoderm 5%) 1 patch TD QAM ELLI Stop: 01/01/19 18:29 Last Admin: 12/02/18 19:34 Dose: Not Given Documented by: [id number] Miscellaneous (Remove Lidoderm Patch) 1 ea N/A DAILY@2100 ELLI Stop: 01/01/19 20:59 Last Admin: 12/02/18 20:19 Dose: Not Given Documented by: [id number] Oxybutynin Chloride (Ditropan Xl) 10 mg PO BID ELLI Stop: 01/01/19 20:59 Last Admin: 12/02/18 20:34 Dose: 10 mg Documented by: [id number] Discontinued Medications Dextrose (Dextrose 50%) 25 ml IV NOW ONE Stop: 12/02/18 16:46 Last Admin: 12/02/18 17:08 Dose: 25 ml Documented by: [id number] Hydromorphone HCl (Dilaudid) 1 mg IV Q15M PRN PRN Reason: Pain Stop: 12/16/18 14:30 Last Admin: 12/02/18 16:36 Dose: 1 mg Documented by: [id number] Admin: 12/02/18 15:45 Dose: 1 mg Documented by: [id number] Sodium Chloride (Nss 1000ml) 1,000 mls @ 999 mls/hr IV .Q1H1M ELLI Stop: 12/02/18 15:45 Last Infusion: 12/02/18 16:43 Dose: 0 mls/hr Documented by: [id number] Admin: 12/02/18 15:44 Dose: 999 mls/hr Documented by: [id number] Ketorolac Tromethamine (Toradol) 10 mg IV NOW ONE Stop: 12/02/18 14:32 Last Admin: 12/02/18 15:45 Dose: 10 mg Documented by: [id number] Ondansetron HCl (Zofran) 4 mg IV NOW STA Stop: 12/02/18 14:32 Last Admin: 12/02/18 15:45 Dose: 4 mg Documented by: [id number] ECG Data Attestation: I personally reviewed and interpreted this ECG as follows: Indication: weakness and other (facial pain) Rate (beats per minute): 78 Rhythm: normal sinus Findings: + other (normal QRS); no PAC, no PVC, no ST depression, no ST elevat ion, no acute ischemic change and no ectopy Blood Pressure Blood Pressure Findings: Normal blood pressure Blood Pressure Disposition: did not require urgent referral Discharge Plan Visit Data *Final* Discharge Date/Time: 12/02/18 17:52 Chief Complaint: Facial Injury/Pain Stated Complaint: RT SIDE FACIAL PAIN ED Provider: Barrie Mccracken Discharge Problem: Facial pain, Dehydration, Hypoglycemia Patient Disposition: Admitted As Inpatient Discharge Instructions Interventions: ED Discharge Assessment Last Done: 12/02/18 17:52 The scribe's documentation has been prepared under my direction and personally reviewed by me in its entirety. I confirm that the note above accurately reflects all work, treatment, procedures, and medical decision making performed by me.
[2018-12-02] MEDS: MoRPHine SULFATE 4 MG/ML 1 ML CARP\\VIAL IV PRN (23:27)
[2018-12-03] MEDS: HYDROCODONE/ACETAMOPHEN 5/325MG TAB PO PRN ×3 (02:02→14:14)
[2018-12-03] MEDS: D5W AND NSS 1,000 ML IV SCH ×2 (03:15→13:39)
[2018-12-03 06:57] LABS: BUN Creatinine Ratio 22.2 (10-20); Calcium 7.9 mg/dl (8.5-10.1); Creatinine Clr Calc Pharmacy 173.8 ml/min; Est GFR (African American) 141.8; Est GFR (Non-African American) 122.3; Magnesium 1.8 mg/dl (1.8-2.4); Potassium 3.8 mmol/L (3.5-5.1)
[2018-12-03 07:08] LABS: Phosphorus 1.5 mg/dl (2.5-4.9)
[2018-12-03] MEDS ORDERED: POTASSIUM PHOS 3 MMOL/1 ML INFUSION IV STA (07:52)
[2018-12-03] MEDS ORDERED: POTASSIUM PHOSPHATE 21 MMOL in SODIUM CHLORIDE 0.9% 500 ML IV ONE (08:15)
[2018-12-03] MEDS: clonazePAM 0.5 MG TAB PO SCH ×2 (08:15→22:12)
[2018-12-03] MEDS: DULOXETINE HCL 60 MG CAP PO SCH (08:16)
[2018-12-03] MEDS: GABAPENTIN 400 MG CAP PO SCH ×3 (08:16→20:59)
[2018-12-03] MEDS: OXYBUTYNIN CHLORIDE XL 5 MG TABCR PO SCH ×2 (08:16→20:58)
[2018-12-03] MEDS: BACLOFEN 20 MG TAB PO SCH ×3 (08:17→20:58)
[2018-12-03] MEDS: GABAPENTIN 100 MG CAP PO SCH ×3 (08:17→20:59)
[2018-12-03] MEDS: MULTIVITAMIN TAB PO SCH (08:18)
[2018-12-03] MEDS: LIDOCAINE 5% 1 PATCH TD SCH (08:18)
[2018-12-03] MEDS: MoRPHine SULFATE 4 MG/ML 1 ML CARP\\VIAL IV PRN ×3 (08:32→18:25)
--- NOTE | 2018-12-03 16:26 | Hospitalist Progress Note ---
Date of Service December 03, 2018 Assessment & Plan (1) Facial pain: (2) Trigeminal neuralgia: Present on admission with right facial pain leading to poor oral intake and not able to talk due to the pain History of MS with severe trigeminal neuralgia Pain improved with morphine Continue Gabapentin Tolerated clear liquid diet Has an appointment with neurosurgery at [place] on Tuesday (3) Dehydration: Due to poor oral intake from the mouth pain Has low CO2 secondary to starvation on admission CO2 improves Continue IVF Monitor electrolytes (4) Hypoglycemia: BS in 60 on admission On D5 water with NS Continue monitor (5) MS (multiple sclerosis): Seems to be controlled except trigeminal neuralgia She has an appointment tomorrow with neurosurgery department at [place] for possible gamma knife procedure in the near future He has had the procedure about 1-1/2-year ago and that worked for her DVT prophylaxis SCDs for now CODE STATUS Full Disposition Will discharge home in am Subjective Pt was seen and examined Lying in bed with no distress with at bedside Pt said that pain in her right face area improves She said that the morphine helps with the pain She said that she was able to eat jello today Denies any chest pain, palpitation, dizziness and SOB Physical Exam Physical Exam: General- No acute distress Head- atraumatic Eyes- PERRL, EOMI, ENT- oropharynx clear Neck- supple, no JVD Lungs- clear to auscultation Heart- regular rhythm; no murmur Abdomen- normal bowel sounds, soft, nontender Extremities- no calf tenderness Neuro- alert, oriented, PERRL, paraplegia in lower extremities. Skin- warm & dry Results & Data Vital Signs (Past 12 Hours) Vital Signs Temp Pulse Pulse Resp BP BP Pulse Ox 12/03/18 16:18 81 12/03/18 16:00 36.5 C 85 18 95/58 L 98 12/03/18 11:39 36.7 C 95 H 17 88/57 L 97 12/03/18 07:34 36.7 C 90 17 91/59 L 98 12/03/18 07:28 85 12/03/18 04:39 37.1 C 99 H 18 93/55 L 94
[2018-12-03] MEDS ORDERED: diphenhydrAMINE HCl 12.5 MG/5 ML UDC PO ONE (18:51)
[2018-12-03] MEDS ORDERED: FAMOTIDINE 20 MG in SYRINGE 3 ML IV ONE (19:00)
[2018-12-03] MEDS ORDERED: LACTATED RINGER'S 1,000 ML IV ONE (22:49)
[2018-12-03] MEDS ORDERED: HYDROmorphone INJ 0.5 MG/0.5 ML SYR IV PRN (22:50)
[2018-12-03] MEDS ORDERED: MAGNESIUM SULFATE / D5W 1 GM/100 ML BAG IV ONE (23:00)
[2018-12-03] MEDS ORDERED: POTASSIUM CHLORIDE 20 MEQ TABCR PO ONE (23:00)
[2018-12-04] MEDS: HYDROCODONE/ACETAMOPHEN 5/325MG TAB PO PRN ×2 (07:28→19:28)
[2018-12-04] MEDS: LIDOCAINE 5% 1 PATCH TD SCH (08:18)
--- NOTE | 2018-12-04 10:10 | Hospitalist Progress Note ---
Date of Service December 04, 2018 Assessment & Plan (1) Facial pain: Secondary to trigeminal neuralgia Not been able to talk or eat anything by mouth due to pain Developed rash/itching yesterday after getting the morphine Morphine was changed to dilaudid Continue to have have severe pain recommended to stay for another night due to the pain But has an appointment today with Neurosurgery at [place] for possible gamma knife procedure in the near future said that last time had the procedure done and worked (2) Trigeminal neuralgia: Present on admission with right facial pain leading to poor oral intake and not able to talk due to the pain History of MS with severe trigeminal neuralgia Pain improved with morphine Continue Gabapentin Tolerated clear liquid diet Has an appointment with neurosurgery at [place] on today at 1pm will call to try to re-schedule it (3) Dehydration: Due to poor oral intake from the mouth pain Has low CO2 secondary to starvation on admission CO2 improves Discontinued IVF yesterday since PO intake increased Monitor electrolytes (4) Hypoglycemia: BS in 60 on admission On D5 water with NS Continue monitor (5) MS (multiple sclerosis): Seems to be controlled except trigeminal neuralgia She has an appointment tomorrow with neurosurgery department at [place] for possible gamma knife procedure in the near future He has had the procedure about 1-1/2-year ago and that worked for her Hypophosphatemia Phosphate was 1.5, replaced Check phosphate DVT prophylaxis SCDs for now CODE STATUS Full Disposition Will discharge once medically stable Subjective Pt was seen and examined. Lying in bed with right side facial pain at bedside very tearful because her Pain got worst this morning Pt has an appointment today at 1pm with neurosurgery at [place] for possible gamma knife procedure in the near future does not want her to miss the appointment but pt is having severe pain as well will call to see if they can change the appointment for the end of the week She did not eat this morning due to the pain Physical Exam Physical Exam: General- Severe facial pain Head- atraumatic Eyes- PERRL, EOMI, ENT- oropharynx clear Neck- supple, no JVD Lungs- clear to auscultation Heart- regular rhythm; no murmur Abdomen- normal bowel sounds, soft, nontender Extremities- no calf tenderness Neuro- alert, oriented, PERRL, paraplegia in lower extremities. Skin- warm & dry Results & Data Vital Signs (Past 12 Hours) Vital Signs Temp Pulse Pulse Resp BP BP Pulse Ox 12/04/18 07:25 36.7 C 94 H 17 100/63 95 12/04/18 04:23 37.1 C 93 H 18 94/61 L 97 12/04/18 00:20 90 12/03/18 22:39 37.3 C 90 18 94/65 L 95
[2018-12-04] MEDS ORDERED: HYDROmorphone INJ 0.5 MG/0.5 ML SYR ONE (10:35)
[2018-12-04] MEDS: MULTIVITAMIN TAB PO SCH (12:05)
[2018-12-04] MEDS: GABAPENTIN 100 MG CAP PO SCH ×2 (12:05→14:16)
[2018-12-04] MEDS: GABAPENTIN 400 MG CAP PO SCH ×2 (12:05→14:16)
[2018-12-04] MEDS: clonazePAM 0.5 MG TAB PO SCH ×2 (12:08→20:50)
[2018-12-04] MEDS: BACLOFEN 20 MG TAB PO SCH ×3 (12:09→20:48)
[2018-12-04] MEDS: MoRPHine SULFATE 2 MG/ML CARP IV PRN ×2 (12:48→19:00)
[2018-12-04] MEDS: DULOXETINE HCL 60 MG CAP PO SCH (12:49)
[2018-12-04] MEDS: OXYBUTYNIN CHLORIDE XL 5 MG TABCR PO SCH ×2 (12:49→20:53)
[2018-12-04] MEDS ORDERED: TRIAMCINOLONE ACET 40 MG/ML VIAL ONE (14:03)
[2018-12-04] MEDS ORDERED: BUPIVACAINE 0.5 % 5 MG/1 ML PF 10ML VIAL ONE (14:03)
--- NOTE | 2018-12-04 14:11 | Neurology Consultation ---
Date of Consultation December 04, 2018 Assessment & Plan (1) Facial pain: 1. trigeminal neuralgia - home dosing of gabepentin 500 mg TID increase to 600 mg TID- may crush if needed. 2. baclofen 20 mg /2 tablets am and noon 1 tablet at bedtime- ok to crush 3. klonopin 0.5 mg TID prn 4. cymbalta 60 mg daily 5. pain mgt - nerve block- thank you pain mgt for your help- reduced pain threshold 6. contacted Dr Harvey for possible sooner appointment but unable to change at this point. to call today or tomorrow 7. [place] [facility] [place] have gamma knife. - [facility] only other in area for GN Supervising Physician Co-Signing Physician Notes I have seen and discussed above patient with Dr Keisha Osborne, neurology. PT seen and discussed. Pt is known to me. did not examine due to severe pain. Pt is awake alert Intract trigeminal neuralgia. Local V2 block seems to have been helpful. Incr gabapentin.DAPHNEY Eid will attempt to contact [facility] to see when they can coordinate placement of frame for gamma knife. AUSTEN Osborne MD History of Present Illness Reason for Consultation: trigeminal neuralgia/MS Requesting Physician: Ayde Kang MD Attending Physician: Ayde Kang MD History of Present Illness Jagruti is a 48 year old female with PMH- multiple sclerosis with severe trigeminal neuralgia, neurogenic bladder, osteoporosis, paraplegia secondary to MS, mitral valve prolapse, seizure disorder and spasticity has been complaining of increasing pain on the right side of the face due to trigeminal neuralgia. She has not been able to eat or drink or even talk due to the pain for the last 4 days too. She was given some intravenous pain medications and she is clinically better and went home. Pain started to increase again and she returned and was admitted. She was found to have severe dehydration and early metabolic acidosis. She was to have a [facility] appointment for repeat of gamma knife by Dr Harvey which is scheduled for 12/13/2018. She had gamma knife done almost 2 years ago and was very successful to decrease the pain. Denies any fever and/or chills, denies any worsening symptoms of MS, any headache or any new symptoms to suggest involvement of the MS, no fever and/or chills, no nausea or vomiting and no problem with urine and her bowel habit. Allergies Allergy/AdvReac Type Severity Reaction Status Date / Time amantadine Allergy Intermediate SWELLING Verified 12/02/18 15:34 carbamazepine Allergy Unknown RASH Verified 12/02/18 15:34 levetiracetam Allergy Unknown rash Verified 04/22/16 20:54 morphine Allergy Rash Verified 12/03/18 22:48 azathioprine AdvReac Intermediate INCREASED Unverified 04/22/16 18:54 LFT'S/ABDOMINAL PAIN Home Medications Home Medications Medication Instructions Recorded Confirmed Type alendronate 70 mg PO WK 12/02/18 12/02/18 History baclofen 0 mg PO DIRECTED 12/02/18 12/02/18 History calcium carbonate [Calcium 600] 0 mg PO DAILY 12/02/18 12/02/18 History clonazepam 0.5 mg PO BID 12/02/18 12/02/18 History duloxetine 60 mg PO DAILY 12/02/18 12/02/18 History gabapentin 100 mg PO TID 12/02/18 12/02/18 History gabapentin [Neurontin] 400 mg PO TID 12/02/18 12/02/18 History hydrocodone-acetaminophen 1 tab PO Q6H PRN 12/02/18 12/02/18 History multivitamin 1 tab PO DAILY 12/02/18 12/02/18 History natalizumab [Tysabri] 300 mg IV .Q 4 WEEKS 12/02/18 12/02/18 History oxybutynin chloride 10 mg PO BID 12/02/18 12/02/18 History Patient History Medical History MS (multiple sclerosis) (Chronic) Trigeminal neuralgia (Chronic) Sacral decubitus ulcer, stage II Surgical History History of tubal ligation (Chronic) Hx of section Family History Other Cancer Seizure Social History Preferred Language: Occitan Communication Ability: Effective Beliefs That Will Affect Care: Tenriism marital status: Current Living Situation: Spouse current occupational status: disabled Other Information That Helps Us Care for You: No Feels Safe at Home: Yes Safety Concerns: Feels Safe At This Time Smoking Status: Never smoker Hx Alcohol Use: No Hx Substance Use: No Physical Exam Physical Exam: Gen: lying in bed applying pressure to right face appears in pain lungs CTA CV RRR hemiplegic bilaterally LE brisk reflexes Results & Data Vital Signs (Past 12 Hours) Vital Signs Temp Pulse Pulse Resp BP BP Pulse Ox 12/04/18 12:17 37.1 C 87 16 90/60 L 94 12/04/18 08:00 80 12/04/18 07:25 36.7 C 94 H 17 100/63 95 12/04/18 04:23 37.1 C 93 H 18 94/61 L 97 Laboratory Results Abnormal lab results 12/04/18 Range/Units 09:18 Phosphorus 1.8 L (2.5-4.9) mg/dl Diagnostic Findings no imaging
--- NOTE | 2018-12-04 14:44 | Pain Management Consultation ---
Date of Consultation December 04, 2018 Assessment & Plan (1) Facial pain: 1. Recommend increasing gabapentin to 600mg PO TID and cymbalta to 90mg po qAM. 2. Recommend Right CN V2 nerve block. See procedure note below. 3. Will follow up in AM. Consider sphenopalatine ganglion block if no relief 4. Recommend f/u with [facility] for consideration of Gamma knife. 5. Thank you for this consultation. (2) MS (multiple sclerosis): (3) Trigeminal neuralgia: CRANIAL NERVE V2 NERVE BLOCK Diagnosis: Atypical Facial Pain Side: Right Surgeon: Dr. Roslyn Watts Anesthesia: none Material forwarded to lab: none The patient was counseled on the risks, benefits of the procedure and agrees to proceed. No sign of infection at site of needle insertion. Consent was obtained and witnessed. Time out was performed. The area of injection was cleaned with an alcohol swab. Next, 0.1ml 0.5% bupivacaine PF and 40mg kenalog was injected through a 25G needle after the nerve was identified with skeletal landmarks and negative aspiration for blood. The patient tolerated the procedure well. History of Present Illness Reason for Consultation: Right trigeminal neuralgia Requesting Physician: Dr. watters Attending Physician: Ayde Kang MD History of Present Illness 48-year-old female with history of multiple sclerosis and right V2 trigeminal neuralgia who had a gamma knife procedure performed at [facility] approximately 18 months ago with good effect until recent. She was admitted on 12/02/2018 with intractable right-sided facial pain. Patient states that the pain feels like there is a sword up her nose through the top of her head and rates it as 10 out of 10. She is crying actively on my examination. Her hus band is at bedside. Patient states that pain is prohibiting her from eating or drinking and has a secondary diagnosis of dehydration during this hospitalization. She also has difficulty speaking secondary to pain. She was to have a neurosurgery appointment for consideration of repeat gamma knife at [facility] today but this had to be rescheduled as the patient is currently hospitalized and did not feel that she was able to leave the hospital secondary to 10 out of 10 pain. Pain Assessment Pain scale - at its best (0-10): 0 Pain scale - at its worst (0-10): 10 Allergies Allergy/AdvReac Type Severity Reaction Status Date / Time amantadine Allergy Intermediate SWELLING Verified 12/02/18 15:34 carbamazepine Allergy Unknown RASH Verified 12/02/18 15:34 levetiracetam Allergy Unknown rash Verified 04/22/16 20:54 morphine Allergy Rash Verified 12/03/18 22:48 azathioprine AdvReac Intermediate INCREASED Unverified 04/22/16 18:54 LFT'S/ABDOMINAL PAIN Home Medications Home Medications Medication Instructions Recorded Confirmed Type alendronate 70 mg PO WK 12/02/18 12/02/18 History baclofen 0 mg PO DIRECTED 12/02/18 12/02/18 History calcium carbonate [Calcium 600] 0 mg PO DAILY 12/02/18 12/02/18 History clonazepam 0.5 mg PO BID 12/02/18 12/02/18 History duloxetine 60 mg PO DAILY 12/02/18 12/02/18 History gabapentin 100 mg PO TID 12/02/18 12/02/18 History gabapentin [Neurontin] 400 mg PO TID 12/02/18 12/02/18 History hydrocodone-acetaminophen 1 tab PO Q6H PRN 12/02/18 12/02/18 History multivitamin 1 tab PO DAILY 12/02/18 12/02/18 History natalizumab [Tysabri] 300 mg IV .Q 4 WEEKS 12/02/18 12/02/18 History oxybutynin chloride 10 mg PO BID 12/02/18 12/02/18 History Pain History Pain Location Full Body Front + Back: 1. Pain Intensity [facility] Combined Pain Scale: 10-Worst Imaginable - Paralyzing. Decreased consciousness due to pain. Pain scale - at its best (0-10): 0 Pain scale - at its worst (0-10): 10 Cause Cause of Pain: Spontaneous Timing Timing: all day and episodic Character Pain character: aching, burning, sharp and intermittent Activity Factors Exacerbated by: other (nothing) Functional Limitations [facility] Combined Function Scale: 3-Mild Limitations - Can complete ADLs & chores with help 15-25% Previous Treatment Treatments: massage therapy, surgery, ice and heat Medications: NSAIDs, Cymbalta, Gabapentin, Lidoderm patch, Narcotics and Oral steroid Previous Evaluations and Results Evaluations by other providers: neurology, [facility] Current or Pending Litigation Current or Pending Litigation: Unknown Patient History Medical History MS (multiple sclerosis) (Chronic) Trigeminal neuralgia (Chronic) Sacral decubitus ulcer, stage II Surgical History History of tubal ligation (Chronic) Hx of section Family History Other Cancer Seizure Social History Preferred Language: Yemeni Communication Ability: Effective Beliefs That Will Affect Care: Alevism marital status: Current Living Situation: Spouse current occupational status: disabled Feels Safe at Home: Yes Smoking Status: Never smoker Hx Alcohol Use: No Hx Substance Use: No Physical Exam Physical Exam: Constitutional: Thin accompanied by her on today's examination. crying on exam Psych: Awake, alert, and oriented 3 with normal affect and mood. Recent memory appears grossly intact Eyes: Pupils are equally round and reactive to light with normal size pupils, eyelids appear normal. She is nontender over right supraorbital and supratrochlear nerves. She is tender over her right infraorbital cranial nerve V2. The patient is hesitant to allow me to examine her right side of her face but does appear to have pain over her right nasal bridge in her right nare with radiation to her right infraorbital foramen. Allodynia is present. Ear, nose, mouth, and throat: Moist nasal and oral membranes, lips and tongues appear normal, no external ear abnormalities are noted Neck: The trachea is midline without deviation and no thyromegaly is noted Respiratory: Normal respiratory effort without distress, no audible wheezes or rhonchi CV: Normal S1 and S2 Chest: Deferred GI/abdomen: Non-tender without guarding, soft Musculoskeletal: Head is normocephalic and atraumatic, gait not observed Cervical: Lordotic curve: Normal Range of motion is normal with extension, flexion, side-bending, rotation Strength: Strength is equal bilaterally with 4+ out of 5 strength in all planes Lumbar: Lordotic curve: Normal Strength: Strength is grossly equal bilaterally with 3 out of 5 strength in all planes Skin: No rashes, lesions, ulcers, or induration noted Neuro: No nystagmus noted, the tongue is midline, the patient is able to rotate their head bilaterally : Diaz catheter in situ
[2018-12-04] MEDS ORDERED: GABAPENTIN 600 MG TAB PO SCH ×2 (14:45→21:00)
[2018-12-04] MEDS ORDERED: GABAPENTIN 250 MG/5 ML 470 ML BTL PO SCH (16:10)
[2018-12-04] MEDS ORDERED: POTASSIUM PHOS 3 MMOL/1 ML INFUSION IV STA (17:49)
[2018-12-04] MEDS ORDERED: POTASSIUM PHOSPHATE 15 MMOL in SODIUM CHLORIDE 0.9% 250 ML IV ONE (18:00)
[2018-12-04] MEDS: GABAPENTIN 600 MG TAB PO SCH (20:47)
[2018-12-05] MEDS: MoRPHine SULFATE 2 MG/ML CARP IV PRN ×3 (04:51→16:27)
[2018-12-05] MEDS: HYDROmorphone INJ 0.5 MG/0.5 ML SYR IV PRN ×3 (05:35→19:36)
[2018-12-05] MEDS: OXYBUTYNIN CHLORIDE XL 5 MG TABCR PO SCH ×2 (07:33→20:24)
[2018-12-05] MEDS: DULOXETINE HCL 30 MG CAP PO SCH (07:33)
[2018-12-05] MEDS: clonazePAM 0.5 MG TAB PO SCH ×2 (07:34→20:20)
[2018-12-05] MEDS: MULTIVITAMIN TAB PO SCH (07:34)
[2018-12-05] MEDS: BACLOFEN 20 MG TAB PO SCH ×3 (07:34→20:20)
[2018-12-05] MEDS: GABAPENTIN 600 MG TAB PO SCH ×3 (07:34→20:20)
[2018-12-05] MEDS: LIDOCAINE 5% 1 PATCH TD SCH (07:51)
[2018-12-05] MEDS ORDERED: DEXAMETHASONE SOD INJ 4 MG/ML VIAL ONE ×2 (08:46)
[2018-12-05] MEDS ORDERED: BUPIVACAINE 0.5 % 5 MG/1 ML PF 10ML VIAL ONE ×2 (08:46→13:09)
[2018-12-05 08:56] LABS: Phosphorus 3.1 mg/dl (2.5-4.9)
--- NOTE | 2018-12-05 10:26 | Pain Management Progress Note ---
Date of Service December 05, 2018 Assessment & Plan (1) Facial pain: 1. Recommend continuing gabapentin to 600mg PO TID and cymbalta to 90mg po qAM. 2. Recommend bilateral sphenopalatine ganglion nerve block. See procedure note below. 3. Since patient had 75% reduction in pain after a right cranial nerve V2 infraorbital nerve block for the duration of the local anesthetic consider repeat block with possible radiofrequency ablation in the future (tentatively plan for 12/07/2018 at 10 AM in my office on [facility]). 4. Recommend f/u with [facility] for consideration of Gamma knife. 5. We will follow-up later this afternoon. (2) MS (multiple sclerosis): (3) Trigeminal neuralgia: Subjective 48-year-old female with history of multiple sclerosis and right V2 trigeminal neuralgia who had a gamma knife procedure performed at [facility] approximately 18 months ago with good effect until recent. She was admitted on 12/02/2018 with intractable right-sided facial pain. Yesterday she had a right V2 infraorbital nerve block with 75% reduction in overall pain for the duration of the local anesthetic. Pain recurred this morning. Pain currently is 10 out of 10. She is crying actively on my examination. Her is at bedside. Patient states that pain continues to prohibit her from eating or drinking and has a secondary diagnosis of dehydration during this hospitalization. She also has difficulty speaking secondary to pain. Pain Assessment Pain Assessment [facility] Combined Pain Scale: 10-Worst Imaginable - Paralyzing. Dec reased consciousness due to pain. Physical Exam Physical Exam: Constitutional: Thin accompanied by her on today's examination. crying on exam Psych: Awake, alert, and oriented 3 with normal affect and mood. Recent memory appears grossly intact Eyes: Pupils are equally round and reactive to light with normal size pupils, eyelids appear normal. She is nontender over right supraorbital and supratrochlear nerves. She is tender over her right infraorbital cranial nerve V2. The patient is hesitant to allow me to examine her right side of her face but does appear to have pain over her right nasal bridge in her right nare with radiation to her right infraorbital foramen. Allodynia is present. Ear, nose, mouth, and throat: Moist nasal and oral membranes, lips and tongues appear normal, no external ear abnormalities are noted Neck: The trachea is midline without deviation and no thyromegaly is noted Respiratory: Normal respiratory effort without distress, no audible wheezes or rhonchi CV: Normal S1 and S2 Chest: Deferred GI/abdomen: Non-tender without guarding, soft Musculoskeletal: Head is normocephalic and atraumatic, gait not observed Cervical: Lordotic curve: Normal Range of motion is normal with extension, flexion, side-bending, rotation Strength: Strength is equal bilaterally with 4+ out of 5 strength in all planes Lumbar: Lordotic curve: Normal Strength: Strength is grossly equal bilaterally with 3 out of 5 strength in all planes Skin: No rashes, lesions, ulcers, or induration noted Neuro: No nystagmus noted, the tongue is midline, the patient is able to rotate their head bilaterally : Diaz catheter in situ
--- NOTE | 2018-12-05 13:00 | Hospitalist Progress Note ---
Date of Service December 05, 2018 Assessment & Plan (1) Facial pain: Secondary to trigeminal neuralgia Not been able to talk or eat anything by mouth due to pain Developed rash/itching yesterday after getting the morphine Morphine was changed to dilaudid Continue to have have severe pain recommended to stay for another night due to the pain But has an appointment today with Neurosurgery at [place] for possible gamma knife procedure in the near future said that last time had the procedure done and worked 12/05 S/P nerve block done on 12/04 S/p bilateral sphenopalatine ganglion nerve block this morning case discussed with Dr. Watts who plan to repeat a 2nd nerve block this afternoon Possible radiofrequency ablation (tentatively plan for 12/07/2018 at 10 AM in my office on [facility]) with Dr Watts Case discussed with Dr. Manzano at [facility] and neurosurgery Dr. Harvey about the gamma knife procedure. They do not do the gamma knife procedure inpatient Follow up appt with Dr. Garsia on 12/13 to discuss about the gamma knife procedure (2) Trigeminal neuralgia: Present on admission with right facial pain leading to poor oral intake and not able to talk due to the pain History of MS with severe trigeminal neuralgia Pain improved with morphine Continue Gabapentin Tolerated clear liquid diet Has an appointment with neurosurgery at [place] with Dr. Garsia on 12/13 to discuss about the gamma knife procedure (3) Dehydration: Due to poor oral intake from the mouth pain Has low CO2 secondary to starvation on admission CO2 improves Discontinued IVF yesterday since PO intake increased Monitor electrolytes (4) Hypoglycemia: BS in 60 on admission On D5 water with NS Continue monitor (5) MS (multiple sclerosis): Seems to be controlled except trigeminal neuralgia She has an appointment tomorrow with neurosurgery department at [place] for possible gamma knife procedure in the near future He has had the procedure about 1-1/2-year ago and that worked for her Hypophosphatemia Phosphate was 3.1 Stable DVT prophylaxis SCDs for now CODE STATUS Full Disposition Will discharge once medically stable Follow up with Dr. Beatty on 12/11 @ 2:45 PM Subjective Pt was seen and examined Lying in bed with complaint of severe right facial pain She had the ganglion nerve block done this morning and seems to work fine after the procedure But 1 hr later nurse called and when i went to check on her, she was having se tala right facial pain was asking if pt can be transferred to [facility] to get the gamma knife procedure done [facility]. Moya I spoke to Yoursef and he said that he does not do the gamma knife procedure done inpatient Dr. Moya referred me to Dr. Harvey to see if she can do the gamma knife procedure inpatient Case discussed with neurosurgery Dr. Harvey who said that she does not do the pr ocedure inpatient Dr. Harvey said that she will need to arrange with MRI team before she can schedule for the gamma knife She recommended the patient to keep the appointment on 12/13 and she can arrange 1 -2 days later to get the gamma knife Denies any chest pain, palpitation and SOB Physical Exam Physical Exam: General- Severe facial pain Head- atraumatic Eyes- PERRL, EOMI, ENT- oropharynx clear Neck- supple, no JVD Lungs- clear to auscultation Heart- regular rhythm; no murmur Abdomen- normal bowel sounds, soft, nontender Extremities- no calf tenderness Neuro- alert, oriented, PERRL, paraplegia in lower extremities. Skin- warm & dry Results & Data Vital Signs (Past 12 Hours) Vital Signs Temp Pulse Resp BP BP Pulse Ox 12/05/18 07:40 36.7 C 90 16 98/56 L 94 12/05/18 04:12 37.1 C 89 17 109/63 95 12/05/18 04:10 36.7 C 70 18 106/66 93
[2018-12-05] MEDS ORDERED: TRIAMCINOLONE ACET 40 MG/ML VIAL ONE (13:09)
--- NOTE | 2018-12-05 14:03 | Neurology Progress Note ---
Date of Service December 05, 2018 Assessment & Plan (1) Facial pain: 1. trigeminal neuralgia - home dosing of gabepentin 500 mg TID increase to 600 mg TID- may crush if needed. 2. baclofen 20 mg 2 tablets am and noon 1 tablet at bedtime- ok to crush 3. klonopin 0.5 mg TID prn 4. cymbalta 60 mg daily 5. pain mgt - nerve block- thank you pain mgt for your help- reduced pain threshold she had a second this am and may have another later today- then as outpatient to temper pain until Gamma knife can be arranged. 6. contacted Dr Harvey for possible sooner appointment but unable to change at this point. to call today or tomorrow 7. [place] and [facility] neither have gamma knife. - [facility] only other in area for GN 8. oral meds unable to tolerate today- will need any switched to IV if possible 9. discharge once medically stable follow up with neurology as scheduled. Supervising Physician Co-Signing Physician Notes I have seen and discussed above patient with Dr Keisha Osborne, neurology. PT seen, multiple pain blocks today,some improvement, still with poor oral intake. I understand pain mgt will provide another block in 2 days. Continue higher dose of gabapentin.Pt is scheduled for follow-up for arranging repeat gamma knife which had been very effective for pt in the past. AUSTEN Osborne MD Zoe Chand is a 48 year old female with PMH- multiple sclerosis with severe trigeminal neuralgia, neurogenic bladder, osteoporosis, paraplegia secondary to MS, mitral valve prolapse, seizure disorder and spasticity has been complaining of increasing pain on the right side of the face due to trigeminal neuralgia. She has not been able to eat or drink or even talk due to the pain for the last 4 days too. She was given some intravenous pain medications and she is clinically better and went home. Pain started to increase again and she returned and was admitted. She was found to have severe dehydration and early metabolic acidosis. She was to have a NS appointment for repeat of gamma knife by Dr Harvey which is scheduled for 12/13/2018. She had gamma knife done almost 2 years ago and was very successful to decrease the pain. She had a V2 block which helped last night and another block this am which has not helped with the pain. She is again unable to tolerate eating or swallowing. she is currently talking which is an improvement with the injections. Denies any fever and/or chills, denies any worsening symptoms of MS, any headache or any new symptoms to suggest involvement of the MS, no fever and/or chills, no nausea or vomiting and no problem with urine and her bowel habit. Physical Exam Physical Exam: Gen: alert NAD lungs CTA CV RRR talking and some right sides asymmetry of mouth strength bilaterally hand tobacco cutter and biceps triceps 4+/5 no movement bilaterally LE sensation intact with light touch Results & Data Vital Signs (Past 12 Hours) Vital Signs Temp Pulse Resp BP BP Pulse Ox 12/05/18 07:40 36.7 C 90 16 98/56 L 94 12/05/18 04:12 37.1 C 89 17 109/63 95 12/05/18 04:10 36.7 C 70 18 106/66 93
[2018-12-05] MEDS ORDERED: bisacodyL 5 MG TABEC PO ONE (15:26)
[2018-12-05] MEDS ORDERED: bisacodyL 10 MG SUPP PR STA (16:47)
[2018-12-06] MEDS: clonazePAM 0.5 MG TAB PO SCH (07:48)
[2018-12-06] MEDS: LIDOCAINE 5% 1 PATCH TD SCH (07:48)
[2018-12-06] MEDS: DULOXETINE HCL 30 MG CAP PO SCH (07:50)
[2018-12-06] MEDS: GABAPENTIN 600 MG TAB PO SCH ×2 (07:50→13:30)
[2018-12-06] MEDS: MULTIVITAMIN TAB PO SCH (07:50)
[2018-12-06] MEDS: BACLOFEN 20 MG TAB PO SCH ×2 (07:51→13:29)
[2018-12-06] MEDS: OXYBUTYNIN CHLORIDE XL 5 MG TABCR PO SCH ×2 (07:52→08:02)
[2018-12-06] MEDS: HYDROmorphone INJ 0.5 MG/0.5 ML SYR IV PRN (07:56)
--- NOTE | 2018-12-06 08:02 | Pain Management Progress Note ---
Date of Service December 06, 2018 Assessment & Plan (1) Trigeminal neuralgia: * Patient was offered another local anesthetic infraorbital nerve block on the right side today. She elects to defer. * Patient is scheduled to undergo a right infrarenal RFA in [facility] tomorrow. Potential risks, benefits were discussed with her in detail. * Recommend discontinuation of gabapentin as it is not effective and trial of pregabalin starting at 25 mg twice a day. This can be done as outpatient by the pain management clinic. Subjective Patient reports improved symptoms today. She continues to experience intermittent lancinating episodes in the right infraorbital region. The episodes are less frequent and less intense. She is able to eat today with minimal discomfort. Offers no new complaints today. Physical Exam Physical Exam: Patient is awake, alert and oriented to time place and person. Does not appear to be in pain or distress at present time. She is able to chew and verbalize without any pain. She has mild tight allodynia in the right infraorbital region. Otherwise exam is unremarkable.
--- NOTE | 2018-12-06 16:02 | Hospitalist Progress Note ---
Date of Service December 06, 2018 Assessment & Plan (1) Facial pain: Secondary to trigeminal neuralgia Not been able to talk or eat anything by mouth due to pain Developed rash/itching yesterday after getting the morphine Morphine was changed to dilaudid Continue to have have severe pain recommended to stay for another night due to the pain But has an appointment today with Neurosurgery at [place] for possible gamma knife procedure in the near future said that last time had the procedure done and worked 12/05 S/P nerve block done on 12/04 S/p bilateral sphenopalatine ganglion nerve block this morning case discussed with Dr. Watts who plan to repeat a 2nd nerve block this afternoon Possible radiofrequency ablation (tentatively plan for 12/07/2018 at 10 AM in my office on [facility]) with Dr Watts Case discussed with Dr. Manzano at [facility] and neurosurgery Dr. Harvey about the gamma knife procedure. They do not do the gamma knife procedure inpatient Follow up appt with Dr. Garsia on 12/13 to discuss about the gamma knife procedure (2) Trigeminal neuralgia: Present on admission with right facial pain leading to poor oral intake and not able to talk due to the pain History of MS with severe trigeminal neuralgia Pain improved with morphine Continue Gabapentin Tolerated clear liquid diet Has an appointment with neurosurgery at [place] with Dr. Garsia on 12/13 to discuss about the gamma knife procedure (3) Dehydration: Due to poor oral intake from the mouth pain Has low CO2 secondary to starvation on admission CO2 improves Discontinued IVF yesterday since PO intake increased Monitor electrolytes (4) Hypoglycemia: BS in 60 on admission On D5 water with NS Continue monitor (5) MS (multiple sclerosis): Seems to be controlled except trigeminal neuralgia She has an appointment tomorrow with neurosurgery department at [place] for possible gamma knife procedure in the near future He has had the procedure about 1-1/2-year ago and that worked for her Hypophosphatemia Phosphate was 3.1 Stable DVT prophylaxis SCDs for now CODE STATUS Full Disposition Will discharge once medically stable Follow up with Dr. Beatty on 12/11 @ 2:45 PM Subjective 12/06 The patient was seen and examined in medical telemetry unit She has been complaining of right facial pain since admission The pain seems to be reasonable She is able to eat and talk reasonably She will be discharged this afternoon Review of Systems Review of Systems: All systems reviewed and are unremarkable except as noted Constitutional: + fatigue and + weakness Respiratory: no cough and no dyspnea Neurologic: Right facial pain secondary to trigeminal neuralgia with history of multiple sclerosis Physical Exam Physical Exam: Lying in bed with minimal discomfort Constitutional: no acute distress and not ill appearing Eyes: PERRL, conjunctivae normal, anicteric sclerae ENMT: external ear and nose normal, oropharynx normal Neck: trachea midline, no thyromegaly Respiratory: no respiratory distress Auscultation: lungs clear to auscultation bilaterally Cardiovascular: Rate/Rhythm: regular rate and regular rhythm Heart Sounds: no murmur Gastrointestinal (Abdomen): Inspection/Auscultation: abdomen normal to inspection and normal bowel sounds Percussion/Palpation: abdomen soft Musculoskeletal: No acute arthritis Neurologic: Right facial pain secondary to trigeminal neuralgia. Has MS with paraplegia and bladder dysfunction Lymphatic: no cervical or axillary lymphadenopathy Results & Data Vital Signs (Past 12 Hours) Vital Signs Temp Pulse Resp BP BP Pulse Ox 12/06/18 15:18 37.1 C 96 H 17 96/53 L 94 12/06/18 07:43 36.8 C 84 18 94/59 L 95
[2018-12-06] MEDS ORDERED: HYDROCODONE/ACETAMINOPHEN 10/325 TAB PO STA (16:27)
--- NOTE | 2018-12-07 08:19 | Discharge Summary ---
Date of Service December 07, 2018 Admission HPI Per Admitting Provider She is a 48-year-old female with significant past medical history of multiple sclerosis with severe trigeminal neuralgia, neurogenic bladder, osteoporosis, paraplegia secondary to MS, mitral valve prolapse, seizure disorder and spasticity has been complaining of increasing pain on the right side of the face due to trigeminal neuralgia. She has not been able to eat or drink or even talk due to the pain for the last 4 days too. She came to emergency room yesterday and was given some intravenous pain medications and she is clinically better and went home. Pain has been increasing since this morning and she is back. Denies any fever and/or chills, denies any worsening symptoms of MS, any headache or any new symptoms to suggest involvement of the MS, no fever and/or chills, no nausea or vomiting and no problem with urine and her bowel habit. In the ER she was noted to have a glucose of 60 and dehydration with early metabolic acidosis. She has a started with the intravenous fluid of normal saline with 5% dextrose and she was given intravenous pain medications to control pain. She has had a consult with the neurosurgery department at [place] with and has an appointment with neurosurgery department on Tuesday to evaluate for possible gamma knife surgery for her problem. She has had gamma knife surgery about 1-1/2 years back and that improved her condition. Admission Exam Per Admitting Provider Physical Exam: In moderate distress in bed Constitutional: well developed, well nourished and + acute distress; not ill appearing Eyes: PERRL, conjunctivae normal, anicteric sclerae ENMT: external ear and nose normal, oropharynx normal Neck: trachea midline, no thyromegaly Respiratory: normal respiratory effort Auscultation: lungs clear to auscultation bilaterally Cardiovascular: Rate/Rhythm: regular rate and regular rhythm Heart Sounds: no murmur Gastrointestinal (Abdomen): Inspection/Auscultation: abdomen normal to inspection and normal bowel sounds Percussion/Palpation: abdomen soft Musculoskeletal: No acute arthritis in any of the joints Neurologic: Has paraplegia with minimal movement to lower extremities.Her extremities are better but wick Lymphatic: no cervical or axillary lymphadenopathy Principal Diagnosis (1) Facial pain (2) Trigeminal neuralgia (3) Hypoglycemia (4) Hypophosphatemia (5) MS (multiple sclerosis) Discharge Exam Constitutional well developed and well nourished; no acute distress and not ill appearing Eyes PERRL, conjunctivae normal, anicteric sclerae ENMT external ear and nose normal, oropharynx normal Neck trachea midline, no thyromegaly Respiratory normal respiratory effort; no respiratory distress Auscultation: lungs clear to auscultation bilaterally Cardiovascular Rate/Rhythm: regular rate and regular rhythm Heart Sounds: no murmur Gastrointestinal (Abdomen) Inspection/Auscultation: abdomen normal to inspection and normal bowel sounds Percussion/Palpation: abdomen soft Lymphatic no cervical or axillary lymphadenopathy Discharge Data Allergies Allergy/AdvReac Type Severity Reaction Status Date / Time amantadine Allergy Intermediate SWELLING Verified 12/02/18 15:34 carbamazepine Allergy Unknown RASH Verified 12/02/18 15:34 levetiracetam Allergy Unknown rash Verified 04/22/16 20:54 morphine Allergy Rash Verified 12/03/18 22:48 azathioprine AdvReac Intermediate INCREASED Unverified 04/22/16 18:54 LFT'S/ABDOMINAL PAIN Consultations 12/02/18 17:04 ED Decision to Admit Stat 12/04/18 11:29 Consult Neurology Routine 12/04/18 13:50 Consult Pain Management Routine Hospital Course (1) Facial pain: Secondary to trigeminal neuralgia Not been able to talk or eat anything by mouth due to pain Developed rash/itching yesterday after getting the morphine Morphine was changed to dilaudid Continue to have have severe pain recommended to stay for another night due to the pain But has an appointment today with Neurosurgery at [place] for possible gamma knife procedure in the near future said that last time had the procedure done and worked 12/05 S/P nerve block done on 12/04 S/p bilateral sphenopalatine ganglion nerve block this morning case discussed with Dr. Watts who plan to repeat a 2nd nerve block this afternoon Possible radiofrequency ablation (tentatively plan for 12/07/2018 at 10 AM in my office on [facility]) with Dr Watts Case discussed with Dr. Manzano at [facility] and neurosurgery Dr. Harvey about the gamma knife procedure. They do not do the gamma knife procedure inpatient Follow up appt with Dr. Garsia on 12/13 to discuss about the gamma knife procedure (2) Trigeminal neuralgia: Present on admission with right facial pain leading to poor oral intake and not able to talk due to the pain History of MS with severe trigeminal neuralgia Pain improved with morphine Continue Gabapentin Tolerated clear liquid diet Has an appointment with neurosurgery at [place] with Dr. Garsia on 12/13 to discuss about the gamma knife procedure (3) Dehydration: Due to poor oral intake from the mouth pain Has low CO2 secondary to starvation on admission CO2 improves Discontinued IVF yesterday since PO intake increased Monitor electrolytes (4) Hypoglycemia: BS in 60 on admission On D5 water with NS Continue monitor (5) MS (multiple sclerosis): Seems to be controlled except trigeminal neuralgia She has an appointment tomorrow with neurosurgery department at [place] for possible gamma knife procedure in the near future He has had the procedure about 1-1/2-year ago and that worked for her Hypophosphatemia Phosphate was 3.1 Stable DVT prophylaxis SCDs for now CODE STATUS Full Disposition Will discharge once medically stable Follow up with Dr. Beatty on 12/11 @ 2:45 PM Total Time Total Time Spent Total Time Spent (In Minutes): 35 minutes Total Time Includes: Examination of the Patient, Discharge Planning, Medication Reconciliation and Communication With Other Providers Discharge Plan Discharge Items Patient Disposition: Home - Self-Care Reason For Visit: DEHYDRATION SECONDARY TO STARVATION Discharge Diagnosis: (1) Facial pain (2) Trigeminal neuralgia (3) Hypoglycemia (4) Hypophosphatemia (5) MS (multiple sclerosis) Condition on Discharge: Fair Activity: Resume your previous activity Activity Comment: Fall precaution Non-emergency contact: Primary Care Provider Call non-emergency contact if: your temperature is above 101 Follow-up/Referrals: Adolfo Garcia MD [Primary Care Provider] - 12/11/18 3:00 pm (Pl Keep 10 AM appointment , 12/07/2018 for radiofrequency ablation of the right V2 infraorbital nerve at the [facility] pain clinic Keep appointment with your neurosurgeon in [place]) Diet: Regular Addtl Attending Provider Instructions: Follow up with your primary care provider Follow up with neurosurgery department at [place] for possible gamma knife procedure in the near future Fall precaution Do not drive or perform any machine after taking any narcotic Please hold any narcotic if you become drowsy and lethargy Gabapentin dose has been increased in the hospital from 500mg 3 times daily to 600mg 3 times daily Pending Studies at Discharge: No Stand-Alone Forms: My [facility] Medications and DC Order Prescriptions: New lidocaine 5 % Adhesive Patch,Medicated 1 patch transdermal QAM Qty: 15 RF: 0 Continued multivitamin Tablet 1 tab PO DAILY RF: 0 oxybutynin chloride 10 mg tablet extended release 24hr 10 mg PO BID RF: 0 hydrocodone-acetaminophen 5-325 mg tablet 1 tab PO Q6H PRN (Reason: Pain) RF: 0 alendronate 70 mg tablet 70 mg PO WK RF: 0 clonazepam 0.5 mg tablet 0.5 mg PO BID RF: 0 baclofen 20 mg tablet PO DIRECTED RF: 0 calcium carbonate [Calcium 600] 600 mg calcium (1,500 mg) Tablet PO DAILY RF: 0 duloxetine 60 mg capsule,delayed release(DR/EC) 60 mg PO DAILY RF: 0 gabapentin [Neurontin] 400 mg capsule 400 mg PO TID RF: 0 Tysabri 300 mg/15 mL Solution 300 mg IV .Q 4 WEEKS RF: 0 Changed gabapentin 100 mg capsule 200 mg PO TID Qty: 0 RF: 0 Discharge Orders: Discharge Order (Routine); Ordered 12/06/18 Ordered By: Fauzia Tam Admission Data Admit Date/Time: 12/05/18 13:26 Attending Provider: Fauzia Tam Admit Provider: Fauzia Tam Primary Care Provider: Adolfo Garcia Other Providers: Fauzia Tam ; Keisha Osborne ; Juvenal Beckett ; Ayde Kang Other Interventions: Discharge Summary Assessment (RN) Last Done: 12/06/18 16:58 DC Date/Time DO NOT enter until pt leaves facility: 12/06/18 18:23
== END 2018-12-06 18:23 | disposition home or self-care (01) | DRG 74 ==
LOC: 2N 13:46 → ED 13:46 → SUATTDRO 17:26 → 2N 17:52 → SUATTDRO 12-05 13:26